=== PATIENT | female | born 1950 | race Caucasian/White ===

== ENCOUNTER 2024-03-02 10:35 | Inpatient (IN) ==
--- NOTE | 2024-01-19 16:08 | PAT Medication Instructions ---
Medication Instructions Date of Service January 19, 2024 Home Medications acetaminophen 650 mg tablet,extended release 650 mg PO Q12H PRN albuterol sulfate 90 mcg/actuation aerosol inhaler 1 inh inhalation QID PRN carboxymethylcellulose sodium 1 % eye liquid gel drops 1 drp ophthalmic (eye) TID cholecalciferol (vitamin D3) 50 mcg (2,000 unit) capsule (Vitamin D3) 50 mcg PO QAM hydrochlorothiazide 12.5 mg capsule 12.5 mg PO QAM losartan 25 mg tablet 25 mg PO BID montelukast 10 mg tablet (Singulair) 10 mg PO HS scopolamine base 1 mg over 3 days transdermal patch 1 patch transdermal Q3D PRN sumatriptan succinate 100 mg tablet (Imitrex) 100 mg PO UD PRN triamcinolone acetonide 55 mcg nasal spray aerosol (Nasacort Allergy) 2 spray intranasal QPM verapamil 120 mg tablet 120 mg PO QAM potassium 99 mg tablet 297 mg PO QPM sumatriptan succinate 6 mg/0.5 mL subcutaneous pen injector 6 mg subcut UD PRN biotin 2,500 mcg capsule 2,500 mcg PO QAM duloxetine 60 mg capsule,delayed release (Cymbalta) 60 mg PO QPM aluminum hydrox-magnesium carb 95 mg-358 mg/15 mL oral suspension (Gaviscon) 15 ml PO HS fluticasone 250 mcg-salmeterol 50 mcg/dose blistr powdr for inhalation (Advair Diskus) 1 inh inhalation BID warfarin 2 mg tablet 2 mg PO UD Continue as directed scopolamine base 1 mg over 3 days transdermal patch 1 patch transdermal Q3D PRN (if needed) sumatriptan succinate 100 mg tablet (Imitrex) 100 mg PO UD PRN(if needed) sumatriptan succinate 6 mg/0.5 mL subcutaneous pen injector 6 mg subcut UD PRN (if needed) ASK your prescriber and surgeon warfarin 2 mg tablet 2 mg PO UD STOP taking 2 weeks before surgery (or as soon as possible if surgery is within 2 weeks) biotin 2,500 mcg capsule 2,500 mcg PO QAM DO NOT take the morning of surgery cholecalciferol (vitamin D3) 50 mcg (2,000 unit) capsule (Vitamin D3) 50 mcg PO QAM hydrochlorothiazide 12.5 mg capsule 12.5 mg PO QAM losartan 25 mg tablet 25 mg PO BID Take morning of surgery With a small sip of water, OTHERWISE NOTHING TO EAT OR DRINK AFTER MIDNIGHT: acetaminophen 650 mg tablet,extended release 650 mg PO Q12H PRN(if needed) albuterol sulfate 90 mcg/actuation aerosol inhaler 1 inh inhalation QID PRN(use if needed; please bring with you to hospital day of surgery if possible) carboxymethylcellulose sodium 1 % eye liquid gel drops 1 drp ophthalmic (eye) TID verapamil 120 mg tablet 120 mg PO QAM fluticasone 250 mcg-salmeterol 50 mcg/dose blistr powdr for inhalation (Advair Diskus) 1 inh inhalation BID Take evening before surgery acetaminophen 650 mg tablet,extended release 650 mg PO Q12H PRN(if needed) albuterol sulfate 90 mcg/actuation aerosol inhaler 1 inh inhalation QID PRN(if needed) carboxymethylcellulose sodium 1 % eye liquid gel drops 1 drp ophthalmic (eye) TID losartan 25 mg tablet 25 mg PO BID montelukast 10 mg tablet (Singulair) 10 mg PO HS triamcinolone acetonide 55 mcg nasal spray aerosol (Nasacort Allergy) 2 spray intranasal QPM potassium 99 mg tablet 297 mg PO QPM duloxetine 60 mg capsule,delayed release (Cymbalta) 60 mg PO QPM aluminum hydrox-magnesium carb 95 mg-358 mg/15 mL oral suspension (Gaviscon) 15 ml PO HS fluticasone 250 mcg-salmeterol 50 mcg/dose blistr powdr for inhalation (Advair Diskus) 1 inh inhalation BID Other Notes If you have any questions please call us at [phone] or [phone] or [phone] or [phone]
--- NOTE | 2024-01-22 10:54 | Anesthesiology Consultation ---
Date of Service January 22, 2024 Assessment & Plan (1) Encounter for pre-operative examination: Plan - awaiting PCP (Betsy [facility]) and cardiology pre-op appointments (Dr. Mirza [place]) 01/29/24. - fax PT/INR to Dr. Martin. - check coags STAT am DOS. - PONV: she states with previous surgery had combination IV pre-dosing and scopolamine patch which she brought to the hospital and plans to do the same approach for this procedure. - chlorhexidine allergy: chlorhexidine wipes not provided at PAT visit. Chart Review Chart Review: Pending: Refer to Additional Notes / Consult section and Patient seen in Pre Admission Testing Teaching & Discussion Pre-Anesthesia Teaching/Discussion Notes: Instructed NPO after midnight before surgery, except medications with 15 cc of water. Medication instructions provided according to the [facility] guidelines. History Surgery Operation Date: 02/18/24 07:45 Proposed Procedures p L2-L4 Decompression and Fusion - Madhu King, Height/Weight Height: 5 ft 4 in Weight: 129 kg Allergies Allergy/AdvReac Type Severity Reaction Status Date / Time chlorhexidine Allergy Severe Hives Verified 01/19/24 13:41 celecoxib [From Celebrex] Allergy Intermediate Blister Verified 01/19/24 13:39 shellfish derived Allergy Intermediate crabs- Verified 01/19/24 13:39 diffuse welts (rhett mouth), swelling ciprofloxacin [From Cipro] Allergy Unknown rash, Verified 01/19/24 13:39 blisters Sulfa (Sulfonamide Allergy Unknown rash, Verified 01/19/24 13:39 Antibiotics) blisters isopropyl alcohol Allergy welted Verified 01/19/24 13:40 [From ChloraPrep Clear] solid bright red rash amoxicillin [From Augmentin] AdvReac Intermediate Vomiting Verified 01/19/24 13:39 clavulanic acid AdvReac Intermediate Vomiting Verified 01/19/24 13:39 [From Augmentin] Medications Home Medications Medication Instructions Recorded Confirmed Last Taken acetaminophen 650 mg 650 mg PO Q12H PRN Pain 02/28/21 01/19/24 2 Days Ago tablet,extended release ~06/05/22 albuterol sulfate 90 mcg/actuation 1 inh inhalation QID PRN sob 02/28/21 01/19/24 06/07/22 05:00 aerosol inhaler carboxymethylcellulose sodium 1 % 1 drp ophthalmic (eye) TID 02/28/21 01/19/24 12/16/22 eye liquid gel drops cholecalciferol (vitamin D3) 50 50 mcg PO QAM 02/28/21 01/19/24 12/16/22 mcg (2,000 unit) capsule (Vitamin D3) hydrochlorothiazide 12.5 mg capsule 12.5 mg PO QAM 02/28/21 01/19/24 12/16/22 losartan 25 mg tablet 25 mg PO BID 02/28/21 01/19/24 12/16/22 montelukast 10 mg tablet 10 mg PO HS 02/28/21 01/19/24 12/16/22 (Singulair) scopolamine base 1 mg over 3 days 1 patch transdermal Q3D PRN Motion 02/28/21 01/19/24 Unknown transdermal patch Sickness sumatriptan succinate 100 mg 100 mg PO UD PRN Migraine Headache 02/28/21 01/19/24 04/23/22 06:00 tablet (Imitrex) triamcinolone acetonide 55 mcg 2 spray intranasal QPM 02/28/21 01/19/24 12/16/22 nasal spray aerosol (Nasacort Allergy) verapamil 120 mg tablet 120 mg PO QAM 02/28/21 01/19/24 12/16/22 potassium 99 mg tablet 297 mg PO QPM 09/28/21 01/19/24 12/16/22 sumatriptan succinate 6 mg/0.5 mL 6 mg subcut UD PRN Migraine 09/28/21 01/19/24 Unknown subcutaneous pen injector Headache biotin 2,500 mcg capsule 2,500 mcg PO QAM 06/05/22 01/19/24 12/16/22 duloxetine 60 mg capsule,delayed 60 mg PO QPM 06/05/22 01/19/24 12/16/22 release (Cymbalta) aluminum hydrox-magnesium carb 95 15 ml PO HS 12/10/22 01/19/24 12/16/22 mg-358 mg/15 mL oral suspension (Gaviscon) fluticasone 250 mcg-salmeterol 50 1 inh inhalation BID 01/19/24 01/19/24 Unknown mcg/dose blistr powdr for inhalation (Advair Diskus) warfarin 2 mg tablet 2 mg PO UD 01/19/24 01/19/24 Unknown Past Medical History Medical History Antiphospholipid syndrome Asthma controlled, stable per pt; last albuterol inhaler use approx several months ago Borderline high cholesterol DDD (degenerative disc disease) Cristine-Danlos syndrome Unremarkable echo 2018 GERD (gastroesophageal reflux disease) controlled, stable per pt HTN (hypertension) controlled, stable per pt Hx of colonic polyps Hx pulmonary embolism "1 huge one, in pulmonary artery 02/07/23"; last CT scan 11/2023-"clot is no longer present"; f/u dr. martin, [facility] pulm in [place] Migraine Ocular; has not had any in years Monoclonal gammopathy Morbid obesity with BMI of 45.0-49.9, adult Osteoarthritis Prothrombin gene mutation Factor II; f/u dr. barnhart, [facility] hematology [place], gets INR checked weekly Spinal stenosis Temporomandibular joint disorder Locking episode several years ago yawning, no issues since; but can happen if mouth is open too wide Thyroid nodule early 2023, bx>benign Patient denies h/o stroke, seizures, heart attack, heart failure, DM, or blood transfusions. Exercise / Class Metabolic Activity III < 4 Walking/Shop/Light housework (denies chest discomfort or shortness of breath with usual activities) Past Family History Family History Sister PONV (postoperative nausea and vomiting) Past Surgical History Surgical History History of Achilles tendon repair Rt History of cholecystectomy History of colonoscopy History of D&C 03/09/21: LMA#4. History of esophagogastroduodenoscopy (EGD) History of hysteroscopy 03/09/21: LMA#4. History of kyphoplasty 2016, L2 History of left knee replacement 2010 History of nasal septoplasty w/ partial turbinate removal History of open reduction and internal fixation (ORIF) procedure LLE History of repair of rotator cuff Rt, w/partial amputation of clavicle; 2021 History of right knee joint replacement 2010 History of skin graft Rt foot History of tubal ligation PONV (postoperative nausea and vomiting) uses scop patch S/P excision of lipoma right foot S/P RC (total abdominal hysterectomy) 2022 Past Anesthesia History No Hx of Anesthesia Complications and Other (several family members with post-op nausea and vomiting) History of PONV History of PONV and Hx of Motion Sickness Social History Smoking Status: Never smoker Do You Dip or Chew Tobacco: No Hx Alcohol Use: Yes Alcohol type: wine alcohol intake frequency: other Alcohol Intake Frequency Comment: rare use Hx Substance Use: No substance use type: does not use Review of Systems Snoring, denies witnessed apneas. Patient denies chest pain, shortness of breath, dyspnea on exertion, fever, ch ills, cough, wheezing, or palpitations. Physical Exam Vital Signs Vitals BP 132/81 P 85 TEMP 98.5 SP02 94% on RA RESP 18 Physical Patient resting comfortably in chair in no acute distress, alert and oriented, responding appropriately throughout visit Full cervical extension range of motion without pain TMD 3.5 finger breadths Mallampati Score 3 Dentition: retainer glued on lower jaw and several crowns, denies chipped or loose teeth, caps, implants or bridges Lungs: normal respiratory effort. Good air movement, clear throughout to auscultation, no adventitious breath sounds Cardiac: regular rate and rhythm, no murmurs noted Carotid arteries: negative bruit bilat Lab Results Anesthesia Preop Results Results Anesthesia Widget: WBC 7.46 K/ul (4.8-10.8) 01/22/24 Hgb 13.7 g/dl (12.0-16.0) 01/22/24 Hct 41.6 % (37.0-47.0) 01/22/24 Plt 368 K/uL (130-400) 01/22/24 Na 138 mmol/L (136-145) 01/22/24 K 3.6 mmol/L (3.5-5.1) 01/22/24 Cl 101 mmol/L (98-107) 01/22/24 CO2 26 mmol/L (21-32) 01/22/24 BUN 21 mg/dl (6-23) 01/22/24 Creat 0.89 mg/dl (0.6-1.2) 01/22/24 Glucose Level 132 mg/dl (70-99(Fasting)) H 01/22/24 PT 18.1 Seconds (9.0-12.0) H 01/22/24 PTT 33 Seconds (21-31) H 01/22/24 INR 1.8 (0.9-1.1) H 01/22/24 Urine Color Dark Yellow 01/22/24 Urine Appearance Clear (Clear) 01/22/24 Urine pH 5.5 (4.5-7.5) 01/22/24 Urine Specific [place] 1.022 (1.000-1.030) 01/22/24 Urine Protein Negative (Negative) 01/22/24 Urine Glucose (UA) Negative (Negative) 01/22/24 Urine Ketones Trace (Negative) H 01/22/24 Urine Blood Negative (Negative) 01/22/24 Urine Nitrite Negative (Negative) 01/22/24 Urine Bilirubin Negative (Negative) 01/22/24 Urine Urobilinogen Negative (Negative) 01/22/24 Urine Leukocyte Esterase Negative (Negative) 01/22/24 Blood Type O Positive 01/22/24 Antibody Screen NEGATIVE 01/22/24 Testing Electrocardiogram Date: 01/22/24 Sinus rhythm with 1st degree AV block with occasional PVCs, rate [address] abnormality Echocardiogram Date: 02/09/23 EF 50-55% Borderline LVH Mildly dilated RV Mildly enlarged RA Mild tricuspid regurgitation Mild mitral regurgitation Borderline pulmonary hypertension, PASP 43 mmHg Stress Test Date: 03/18/22 MPHR 123% No evidence of infarction or ischemia noted Negative findings EF 73% Cardiac Catheterization Date: 05/29/23 Left main: normal LAD: no significant disease Cx: no significant disease RCA: no significant disease Normal right and left heart cath Other Testing Chest CT 12/09/23 No pulmonary intraluminal filling defect is currently identified to suggest recurrent/residual pulmonary embolism
[~2024-03-02 10:35] MED LIST: ACETAMINOPHEN 500 MG TAB PO SCH; GABAPENTIN 300 MG CAP PO SCH; LR 15ML/HR IV SCH; LR 60ML/HR IV SCH; ceFAZolin 2000MG 2,000 MG/15 ML SYR IV SCH; ceFAZolin 3000MG 3,000 MG/72.5 ML BAG IV SCH
[2024-03-02] MEDS ORDERED: ePHEDrine sulfate 50 MG/ML AMP IV PRN (11:29)
[2024-03-02] MEDS ORDERED: ATROPINE SULFATE 0.1 MG/ML 10ML SYR IV PRN (11:29)
[2024-03-02] MEDS ORDERED: ONDANSETRON INJ 2 MG/ML 2 ML VIAL IV PRN ×2 (11:29→16:24)
[2024-03-02] MEDS: ACETAMINOPHEN 500 MG TAB PO SCH (11:31)
[2024-03-02] MEDS: GABAPENTIN 300 MG CAP PO SCH (11:32)
[2024-03-02] MEDS: LR 15ML/HR IV SCH (11:32)
[2024-03-02] MEDS: LR 60ML/HR IV SCH (11:33)
--- NOTE | 2024-03-02 11:49 | History & Physical Bridge Note ---
Date of Service March 02, 2024 History & Physical Bridge Note I have examined the patient, reviewed the History & Physical and in the interval since the performance of the History & Physical I have noted the following changes of clinical significance: no changes noted
--- NOTE | 2024-03-02 11:50 | History & Physical Report ---
Date of Service March 02, 2024 Assessment & Plan (1) Neurogenic claudication due to lumbar spinal stenosis: Plan: L2 L4 decompression and fusion History of Present Illness Chief Complaint: Back and bilateral leg pain Primary Care Provider: Ciera Evans This is a 73-year-old female who presents with chronic persistent back and leg pain after failing course of nonoperative care she is here for surgical intervention. Patient Allergies Allergy/AdvReac Type Severity Reaction Status Date / Time chlorhexidine Allergy Severe Hives Verified 03/02/24 11:04 celecoxib [From Celebrex] Allergy Intermediate Blister Verified 03/02/24 11:04 shellfish derived Allergy Intermediate crabs- Verified 03/02/24 11:04 diffuse welts (rhett mouth), swelling ciprofloxacin [From Cipro] Allergy Unknown rash, Verified 03/02/24 11:04 blisters Sulfa (Sulfonamide Allergy Unknown rash, Verified 03/02/24 11:04 Antibiotics) blisters isopropyl alcohol Allergy welted Verified 03/02/24 11:04 [From ChloraPrep Clear] solid bright red rash amoxicillin [From Augmentin] AdvReac Intermediate Vomiting Verified 03/02/24 11:04 clavulanic acid AdvReac Intermediate Vomiting Verified 03/02/24 11:04 [From Augmentin] Home Medications Medication Instructions Recorded Confirmed Type acetaminophen 650 mg 650 mg PO Q12H PRN Pain 02/28/21 03/02/24 History tablet,extended release albuterol sulfate 90 mcg/actuation 1 inh inhalation QID PRN sob 02/28/21 03/02/24 History aerosol inhaler carboxymethylcellulose sodium 1 % 1 drp ophthalmic (eye) TID 02/28/21 03/02/24 History eye liquid gel drops cholecalciferol (vitamin D3) 50 50 mcg PO QAM 02/28/21 03/02/24 History mcg (2,000 unit) capsule (Vitamin D3) hydrochlorothiazide 12.5 mg capsule 12.5 mg PO QAM 02/28/21 03/02/24 History losartan 25 mg tablet 25 mg PO BID 02/28/21 03/02/24 History montelukast 10 mg tablet 10 mg PO HS 02/28/21 03/02/24 History (Singulair) scopolamine base 1 mg over 3 days 1 patch transdermal Q3D PRN Motion 02/28/21 03/02/24 History transdermal patch Sickness sumatriptan succinate 100 mg 100 mg PO UD PRN Migraine Headache 02/28/21 03/02/24 History tablet (Imitrex) triamcinolone acetonide 55 mcg 2 spray intranasal QPM 02/28/21 03/02/24 History nasal spray aerosol (Nasacort Allergy) verapamil 120 mg tablet 120 mg PO QAM 02/28/21 03/02/24 History potassium 99 mg tablet 297 mg PO QPM 09/28/21 03/02/24 History sumatriptan succinate 6 mg/0.5 mL 6 mg subcut UD PRN Migraine 09/28/21 03/02/24 History subcutaneous pen injector Headache biotin 2,500 mcg capsule 2,500 mcg PO QAM 06/05/22 03/02/24 History duloxetine 60 mg capsule,delayed 60 mg PO QPM 06/05/22 03/02/24 History release (Cymbalta) aluminum hydrox-magnesium carb 95 15 ml PO HS 12/10/22 03/02/24 History mg-358 mg/15 mL oral suspension (Gaviscon) fluticasone 250 mcg-salmeterol 50 1 inh inhalation BID 01/19/24 03/02/24 History mcg/dose blistr powdr for inhalation (Advair Diskus) warfarin 2 mg tablet 4 mg PO DAILY 01/19/24 03/02/24 History enoxaparin 120 mg/0.8 mL 120 mg subcut Q12H 03/02/24 03/02/24 History subcutaneous syringe (Lovenox) Past Med/Surg History Problem List (Updated 03/02/24 @ 11:49 by Madhu King DO) Neurogenic claudication due to lumbar spinal stenosis History of colon polyps Encounter for pre-operative examination Medical History Antiphospholipid syndrome Asthma controlled, stable per pt; last albuterol inhaler use approx several months ago Borderline high cholesterol DDD (degenerative disc disease) Cristine-Danlos syndrome Unremarkable echo 2019 GERD (gastroesophageal reflux disease) controlled, stable per pt HTN (hypertension) controlled, stable per pt Hx of colonic polyps Hx pulmonary embolism "1 huge one, in pulmonary artery 02/07/23"; last CT scan 11/2023-"clot is no longer present"; f/u dr. martin, [facility] pulm in [place] Migraine Ocular; has not had any in years Monoclonal gammopathy Morbid obesity with BMI of 45.0-49.9, adult Osteoarthritis Prothrombin gene mutation Factor II; f/u dr. barnhart, [facility] hematology [place], gets INR checked weekly Spinal stenosis Temporomandibular joint disorder Locking episode several years ago yawning, no issues since; but can happen if mouth is open too wide Thyroid nodule early 2023, bx>benign Surgical History History of Achilles tendon repair Rt History of cholecystectomy History of colonoscopy History of D&C 03/09/21: LMA#4. History of esophagogastroduodenoscopy (EGD) History of hysteroscopy 03/09/21: LMA#4. History of kyphoplasty 2016, L2 History of left knee replacement 2010 History of nasal septoplasty w/ partial turbinate removal History of open reduction and internal fixation (ORIF) procedure LLE History of repair of rotator cuff Rt, w/partial amputation of clavicle; 2021 History of right knee joint replacement 2010 History of skin graft Rt foot History of tubal ligation PONV (postoperative nausea and vomiting) uses scop patch S/P excision of lipoma right foot S/P RC (total abdominal hysterectomy) 2022 Family History Sister PONV (postoperative nausea and vomiting) Social History Smoking Status: Never smoker Second Hand Exposure: Yes (hx as child); Do You Dip or Chew Tobacco: No; Tobacco Cessation Education Requested by Patient: No Hx Alcohol Use: Yes Alcohol type: wine Hx Substance Use: No Preferred Language: [place] Communication Ability: Effective 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
[2024-03-02 11:52] LABS: INR 1.4 (0.9-1.1); Partial Thromboplastin Ratio 1.2; Partial Thromboplastin Time 31 Seconds (21-31); Prothrombin Time 14.3 Seconds (9.0-12.0)
[2024-03-02] MEDS ORDERED: fentaNYL citrate PF 100 MCG/2 ML VIAL ONE ×2 (12:08→13:45)
[2024-03-02] MEDS ORDERED: LIDOCAINE 2% 2 ML VIAL/AMP(20MG/ML) INFIL ONE (12:09)
[2024-03-02] MEDS ORDERED: PROPOFOL IV EMULSION 10 MG/ML 20 ML VIAL IV ONE (12:09)
[2024-03-02] MEDS ORDERED: ROCURONIUM BROMIDE 10 MG/ML 5 ML VIAL IV ONE ×2 (12:09→12:50)
[2024-03-02] MEDS ORDERED: DEXAMETHASONE SOD INJ 4 MG/ML VIAL ONE ×2 (12:10)
[2024-03-02] MEDS ORDERED: ONDANSETRON INJ 2 MG/ML 2 ML VIAL ONE (12:10)
[2024-03-02] MEDS: ceFAZolin 3000MG 3,000 MG/72.5 ML BAG IV SCH (12:21)
[2024-03-02] MEDS ORDERED: ePHEDrine sulfate 50 MG/5 ML SYR ONE ×2 (12:45)
[2024-03-02] MEDS ORDERED: PHENYLEPHRINE 100MCG/ML 5ML SYR ONE (12:46)
[2024-03-02] MEDS: BUPIVACAINE/EPINEPHRINE 0.25% 1:200,000 30 ML VIAL ONE (13:10)
[2024-03-02] MEDS: ceFAZolin 330 MG/ML 1 GM VIAL ONE (13:11)
[2024-03-02] MEDS ORDERED: PHENYLEPHRINE HCL 10 MG/ML VIAL ONE (13:16)
[2024-03-02] MEDS ORDERED: SUGAMMADEX SODIUM 200 MG/2 ML VIAL IV ONE (13:56)
[2024-03-02] MEDS: FLOSEAL HEMOSTATIC MATRIX 10ML TOP ONE (14:19)
--- NOTE | 2024-03-02 14:33 | Operative Report ---
Post Operative Report Pre & Post Diagnosis Operation Date: 03/02/24 11:55 Pre-Op Diagnosis: Lumbar spinal stenosis with neurogenic claudication Morbid obesity Post-Op Diagnosis: Same I identified the patient and participated in the time-out.: Yes Procedure Operation Date: 03/02/24 11:55 Actual Procedures #1 lumbar decompression with bilateral medial facetectomies and foraminotomies L1-L2, L2-L3 and L3-L4. #2 posterior spinal fusion L2-L4. #3 placement of posterior instrumentation L2-L4. #4 interbody fusion L2-L3 L3-L4. #5 placement of Spira 13 x 26 mm at all to L3 and 13 x 26 mm at L3-L4. #6 placement of locally harvested morselized autograft posterior gutters. #7 placement infuse collagen sponge combined with Koros in the posterior lateral gutters and os design bone graft in the interbody space. #8 application of versa wrap over the exposed dura. Surgeon Madhu King, DO Operations Analyst Harper Spivey Estimated Blood Loss 400 Findings See Below The patient is 5 foot 4 weighing over 126 kg with a BMI in excess of 47. Patient's body habitus did contribute to significant technical difficulty with positioning exposure and the procedure itself adding at least 50% increased to the operative time. I am recommending a modifier 22. Specimens None Indications This is a 73-year-old female who presents publish diagnosis of failing course of nonoperative care is here for surgical invention. Description of Procedure Patient was met with identified informed consent obtained. Patient was then taken to the operative suite underwent intubation placed in a prone position on the Vin table on top of the Josh frame. All bony promises well-padded eyes inspected to ensure no external pressure placed upon them. This point the lumbar spine was prepped and draped in the normal sterile fashion. Sharp dissection with assistance with cartilage from down to and exposing the lamina transverse processes of L2-L3 and L4 bilaterally. From a caudal cephalad fashion complete laminectomy of L3 was performed including bilateral medial facetectomies and foraminotomies addressing severe spinal stenosis. I then performed a complete laminectomy of L2 with bilateral medial facetectomies and foraminotomies addressing severe spinal stenosis and lastly partial laminectomy L1 with bilateral medial facetectomies to address all subarticular disease. Pedicle screws were then placed in L2-L3-L4 bilaterally with assistance of fluoroscopy and the properly sized abel placed. By way of transforaminal approach on the right a complete discectomy of L3-L4 was performed endplates corrected to subcortical bleeding bone and the 13 x 26 mm Spira cage filled with os design bone graft tapped in position. Then proceeded to L2-L3 and again by way of a transforaminal approach on the right complete discectomy performed endplates guarded to subcortical mean bone and a 13 x 26 mm spiral cage filled with os designed tapped in position. Rods are then compressed locked in final position bilaterally. The transverse processes of L to L3-L4 burred to subcorti yanira bleeding bone. Infuse collagen sponge, with Koros and local autograft placed in the posterior lower gutters. 15 round TOMY drain inserted. Versa wrap placed over the exposed dura. The incision then closed with 1 Vicryl the fascia 2-0 Vicryl subcutaneously and 4 Monocryl for final skin closure. Steri-Strips sterile dressings placed. Patient waken taken PACU stable condition. Please note spinal cord monitoring was utilized at the procedure no changes noted. Lastly Harper Spivey was present out the entire procedure and brought the patient positioning complex portion of the surgery and final skin closure. Im ordering 20 grams of [employer] [place] Collagen Powder ([employer] [id number]) to treat an incision wound that was caused by a spine procedure. The incision is approximately 2 cm(W) x 4 cm(L) into the joint (D) in size and is a full thickness wound. [employer] [place] collagen comes in 1 gram packets so 20 packets were ordered. Given the size of the wound, with light to moderate exudate I chose to order a 20 day supply. The patient will be provided instructions for proper application of the collagen wound kit. The patient will be asked to apply the collagen powder daily and then cover it with sterile dressings dispensed. Collagen was selected as I expect the collagen to attract monocytes and fibroblasts, act as a sacrificial substrate for MMPs, and ultimately proved a matrix for tissue and vessel growth. The collagen will act as a primary dressing in this scenario. It is medically necessary for proper healing of these wounds to improve bioavailability and contact with each wound surface, this is also to help prevent infection of wounds and promote healing ultimately leading to a better healing outcome and limit the risk of infection. I attest to the content of the Intraoperative Record and any orders documented therein. Any exceptions are noted below.
--- NOTE | 2024-03-02 14:58 | Anesthesiology Progress Note ---
Date of Service March 02, 2024 Anesthesia Post Procedure Vital Signs Vital Signs: Temp Pulse Resp BP Pulse Ox O2 Del Method 03/02/24 11:13 Room Air 03/02/24 11:11 36.5 C 101 H 20 152/98 H 96 Room Air Pain Intensity Lower Back: Pain Intensity: 7 Transfer of Care Handoff Completed per policy Notes Mental Status: alert / awake / arousable Patient Amnestic to Procedure: Yes Nausea / Vomiting: adequately controlled Pain: adequately controlled Airway Patency, RR, SpO2: stable & adequate BP & HR: stable & adequate Hydration State: stable & adequate Anesthetic Complications: no major complications apparent and Pt Satisfied with anesthetic care Notes: Moves Bony LE, No pain, no issues
[2024-03-02] MEDS: fentaNYL citrate PF 100 MCG/2 ML VIAL IV PRN (15:10)
[2024-03-02] MEDS: HYDROmorphone INJ 1 MG/ML SYRINGE IV PRN (15:34)
[2024-03-02] MEDS ORDERED: traMADol HCL 50 MG TABLET PO PRN (16:24)
[2024-03-02] MEDS ORDERED: HYDROmorphone INJ 0.5 MG/0.5 ML SYR IV PRN (16:24)
[2024-03-02] MEDS ORDERED: PROMETHAZINE 12.5 MG/50.5 ML BAG IV PRN (16:24)
[2024-03-02] MEDS ORDERED: DO NOT ADMINISTER PNEUMOCOCCAL VACCINE PRN (16:24)
[2024-03-02] MEDS ORDERED: FAMOTIDINE 20 MG TAB PO PRN (16:24)
[2024-03-02] MEDS ORDERED: bisacodyL 10 MG SUPP PR PRN (16:24)
[2024-03-02] MEDS ORDERED: ALUMINUM/MAGNESIUM SUSP 30 ML UDC PO PRN (16:24)
[2024-03-02] MEDS ORDERED: MAGNESIUM HYDROXIDE SUSP 30 ML UDC PO PRN (16:24)
[2024-03-02] MEDS ORDERED: ACETAMINOPHEN 1,000 MG/100 ML VIAL IV PRN (16:24)
[2024-03-02] MEDS ORDERED: LORazepam 2 MG/1 ML VIAL IV PRN (16:24)
[2024-03-02] MEDS ORDERED: ACETAMINOPHEN 500 MG TAB PO PRN (16:24)
[2024-03-02] MEDS ORDERED: ALBUTEROL HFA 8 GM INHALER INH PRN (16:24)
[2024-03-02] MEDS ORDERED: ONDANSETRON 4 MG OD TAB PO PRN (16:24)
[2024-03-02] MEDS ORDERED: SUMAtriptan succinate 100 MG TAB PO PRN (16:24)
[2024-03-02] MEDS ORDERED: NALOXONE HCL 0.4 MG/1 ML VIAL/CARP IV PRN (16:24)
[2024-03-02] MEDS ORDERED: diphenhydrAMINE Capsule 25 MG CAP PO PRN (16:24)
[2024-03-02] MEDS ORDERED: LORazepam 0.5 MG TAB PO PRN (16:24)
[2024-03-02] MEDS ORDERED: METOCLOPRAMIDE HCL INJ 5 MG/ML 2 ML VIAL IV PRN (16:24)
[2024-03-02] MEDS ORDERED: DO NOT ADMINISTER FLU VACCINE PRN (16:24)
[2024-03-02] MEDS ORDERED: hydrOXYzine HCl 25 MG TAB PO PRN (16:24)
[2024-03-02] MEDS ORDERED: SCOPOLAMINE 1 MG/72 HR TDSY PATCH TD PRN (16:24)
[2024-03-02] MEDS ORDERED: SOD PHOSPHATE/SOD BIPHOSPHATE ENEMA 132 ML BTL PR PRN (16:24)
[2024-03-02] MEDS ORDERED: ARTIFICIAL TEARS OPB PRN (16:40)
[2024-03-02] MEDS ORDERED: SUMAtriptan succinate 6 MG/0.5 ML VIAL SQ PRN (16:44)
--- NOTE | 2024-03-02 17:46 | Consultation ---
Date of Consultation March 02, 2024 Assessment & Plan (1) Neurogenic claudication due to lumbar spinal stenosis: (2) Antiphospholipid syndrome: (3) Migraine: (4) Borderline high cholesterol: (5) HTN (hypertension): (6) Asthma: Plan Assessment and plan: Lumbar stenosis s/p lumbar decompression 03/02/2024: Pain control/DVT prophylaxis per primary team PT/OT Hx antiphospholipid syndrome: Will need Lovenox to Coumadin bridge postoperatively planned to start on 03/03 Hx asthma: Continue albuterol as needed/continue montelukast Hx vitamin D deficiency: Continue vitamin D Hx depression: Continue Cymbalta Hx HTN: hold HCTZ/losartan to prevent hypotension continue verapamil - monitor BP closely A total of 60 minutes was spent on chart review/reviewing diagnostic data/facilitation plan./Discussion with consultants Full code DVT prophylaxis: On Lovenox/Coumadin bridge,on hold per primary team Supervising Physician Co-Signing Physician Notes Attending Addendum: Case reviewed with the advanced practitioner. I have personally performed a history and physical examination on the patient. I have reviewed the advanced practitioner's documentation on the date of service referenced in note, and I agree with, and take responsibility for the plan of care. please refer to her notes for full details patient seen and examined, records reviewed by myself as well on exam, patient seen resting in bed, sleeping but easily awakened, on 2 L of O2 Awake and alert, not in distress, comfortable Has some back pain but overall feels fine Denies chest pain, shortness of breath, dizziness, headache, nausea No other new symptoms no other symptoms VS noted and reviewed oriented x3 , not in distress, speaks in sentences with no effort nor accessory muscle use normal rate, regular rhythm, no murmurs clear breath sounds bilaterally non distended, soft, nontender back: TOMY drain in place with sanguinous output no bipedal edema, erythema, warmth no neuro deficits all labs, imaging noted and reviewed ASSESSMENT AND PLAN> Status post L2-L4 decompression and fusion Stable overall Blood pressure on the lower side Hold off on losartan and HCTZ to prevent hypotension Continue usual verapamil Labs tomorrow Antiphospholipid antibody syndrome History of acute PE, on Coumadin coumadin held for surgery When hemostasis stable per Dr. King, proceed with resuming Coumadin plus Lovenox bridge as directed by patient's PCP: March 03 Coumadin 4 mg Lovenox 120 mg at HS March 04- Coumadin 4 mg Lovenox 120 mg twice daily March 08 INR check other diagnoses and plan of care as per advanced practitioner's notes Jose Alejandro Reyes MD History of Present Illness Requesting Physician: Madhu King Reason for Consultation: Postop medical management Attending Physician: Madhu King DO History of Present Illness The patient is a 73-year-old female with past medical history of lumbar spinal stenosis, asthma, vitamin D deficiency, depression, HTN, migraine, antiphospholipid syndrome who presents to the hospital on 03/02/2024 for a planned operation. She is s/p #1 lumbar decompression with bilateral medial facetectomies and foraminotomies L1-L2, L2-L3 and L3-L4. #2 posterior spinal fusion L2-L4. #3 placement of posterior instrumentation L2-L4. #4 interbody fusion L2-L3 L3-L4. #5 placement of Spira 13 x 26 mm at all to L3 and 13 x 26 mm at L3-L4. #6 placement of locally harvested morselized autograft posterior gutters. #7 placement infuse collagen sponge combined with Koros in the posterior lateral gutters and os design bone graft in the interbody space. #8 application of versa wrap over the exposed dura. On exam, the patient is resting comfortably. Reports some lower back tenderness but otherwise denies any chest pain/shortness of breath/fever/chills/abdominal pain. Allergies Allergy/AdvReac Type Severity Reaction Status Date / Time chlorhexidine Allergy Severe Hives Verified 03/02/24 11:04 celecoxib [From Celebrex] Allergy Intermediate Blister Verified 03/02/24 11:04 shellfish derived Allergy Intermediate crabs- Verified 03/02/24 11:04 diffuse welts (rhett mouth), swelling ciprofloxacin [From Cipro] Allergy Unknown rash, Verified 03/02/24 11:04 blisters Sulfa (Sulfonamide Allergy Unknown rash, Verified 03/02/24 11:04 Antibiotics) blisters isopropyl alcohol Allergy welted Verified 03/02/24 11:04 [From ChloraPrep Clear] solid bright red rash amoxicillin [From Augmentin] AdvReac Intermediate Vomiting Verified 03/02/24 11:04 clavulanic acid AdvReac Intermediate Vomiting Verified 03/02/24 11:04 [From Augmentin] Home Medications Medication Instructions Recorded Confirmed Type acetaminophen 650 mg 650 mg PO Q12H PRN Pain 02/28/21 03/02/24 History tablet,extended release albuterol sulfate 90 mcg/actuation 1 inh inhalation QID PRN sob 02/28/21 03/02/24 History aerosol inhaler carboxymethylcellulose sodium 1 % 1 drp ophthalmic (eye) TID 02/28/21 03/02/24 History eye liquid gel drops cholecalciferol (vitamin D3) 50 50 mcg PO QAM 02/28/21 03/02/24 History mcg (2,000 unit) capsule (Vitamin D3) hydrochlorothiazide 12.5 mg capsule 12.5 mg PO QAM 02/28/21 03/02/24 History losartan 25 mg tablet 25 mg PO BID 02/28/21 03/02/24 History montelukast 10 mg tablet 10 mg PO HS 02/28/21 03/02/24 History (Singulair) scopolamine base 1 mg over 3 days 1 patch transdermal Q3D PRN Motion 02/28/21 03/02/24 History transdermal patch Sickness sumatriptan succinate 100 mg 100 mg PO UD PRN Migraine Headache 02/28/21 03/02/24 History tablet (Imitrex) triamcinolone acetonide 55 mcg 2 spray intranasal QPM 02/28/21 03/02/24 History nasal spray aerosol (Nasacort Allergy) verapamil 120 mg tablet 120 mg PO QAM 02/28/21 03/02/24 History potassium 99 mg tablet 297 mg PO QPM 09/28/21 03/02/24 History sumatriptan succinate 6 mg/0.5 mL 6 mg subcut UD PRN Migraine 09/28/21 03/02/24 History subcutaneous pen injector Headache biotin 2,500 mcg capsule 2,500 mcg PO QAM 06/05/22 03/02/24 History duloxetine 60 mg capsule,delayed 60 mg PO QPM 06/05/22 03/02/24 History release (Cymbalta) aluminum hydrox-magnesium carb 95 15 ml PO HS 12/10/22 03/02/24 History mg-358 mg/15 mL oral suspension (Gaviscon) fluticasone 250 mcg-salmeterol 50 1 inh inhalation BID 01/19/24 03/02/24 History mcg/dose blistr powdr for inhalation (Advair Diskus) warfarin 2 mg tablet 4 mg PO DAILY 01/19/24 03/02/24 History enoxaparin 120 mg/0.8 mL 120 mg subcut Q12H 03/02/24 03/02/24 History subcutaneous syringe (Lovenox) Patient History Medical History Antiphospholipid syndrome Asthma controlled, stable per pt; last albuterol inhaler use approx several months ago Borderline high cholesterol DDD (degenerative disc disease) Cristine-Danlos syndrome Unremarkable echo 2019 GERD (gastroesophageal reflux disease) controlled, stable per pt HTN (hypertension) controlled, stable per pt Hx of colonic polyps Hx pulmonary embolism "1 huge one, in pulmonary artery 02/07/23"; last CT scan 11/2023-"clot is no longer present"; f/u dr. martin, [facility] pulm in [place] Migraine Ocular; has not had any in years Monoclonal gammopathy Morbid obesity with BMI of 45.0-49.9, adult Osteoarthritis Prothrombin gene mutation Factor II; f/u dr. barnhart, [facility] hematology [place], gets INR checked weekly Spinal stenosis Temporomandibular joint disorder Locking episode several years ago yawning, no issues since; but can happen if mouth is open too wide Thyroid nodule early 2023, bx>benign Surgical History History of Achilles tendon repair Rt History of cholecystectomy History of colonoscopy History of D&C 03/09/21: LMA#4. History of esophagogastroduodenoscopy (EGD) History of hysteroscopy 03/09/21: LMA#4. History of kyphoplasty 2016, L2 History of left knee replacement 2010 History of nasal septoplasty w/ partial turbinate removal History of open reduction and internal fixation (ORIF) procedure LLE History of repair of rotator cuff Rt, w/partial amputation of clavicle; 2021 History of right knee joint replacement 2010 History of skin graft Rt foot History of tubal ligation PONV (postoperative nausea and vomiting) uses scop patch S/P excision of lipoma right foot S/P RC (total abdominal hysterectomy) 2022 Family History Sister PONV (postoperative nausea and vomiting) Social History Smoking Status: Never smoker Second Hand Exposure: Yes (hx as child); Do You Dip or Chew Tobacco: No; Tobacco Cessation Education Requested by Patient: No Hx Alcohol Use: Yes Alcohol type: wine Hx Substance Use: No Preferred Language: [place] Communication Ability: Effective [employer] Required: No Beliefs That Will Affect Care: None Current Living Situation: Spouse current occupational status: retired Other Information That Helps Us Care for You: No Feels Safe at Home: Yes Safety Concerns: Feels Safe At This Time Assistive Devices: Glasses, Stair Lift and Walker Review of Systems Review of Systems: All systems reviewed & are unremarkable except as noted in HPI & below Physical Exam Constitutional: WD/WN, vitals as above Eyes: PERRL, conjunctivae normal, anicteric sclerae ENMT: external ear and nose normal, oropharynx normal Neck: trachea midline, no thyromegaly Respiratory: normal respiratory effort, lungs clear to auscultation Cardiovascular: RRR, no murmur, no edema Gastrointestinal (Abdomen): normal bowel sounds, soft, nontender, no hepatosplenomegaly Musculoskeletal: no cyanosis or clubbing, extremities motor strength 5/5 Neurologic: PERRL, EOMI, accommodation nl, no face palsy, no dysarthria Lymphatic: no cervical or axillary lymphadenopathy Results & Data Vital Signs (Past 12 Hours) Vital Signs Temp Pulse Pulse Resp BP Pulse Ox O2 Del Method 03/02/24 17:15 84 16 134/78 92 Nasal Cannula 03/02/24 16:50 87 16 107/73 94 Nasal Cannula 03/02/24 16:25 36.6 C 78 16 115/77 94 Nasal Cannula 03/02/24 16:20 Nasal Cannula 03/02/24 16:10 81 13 103/73 94 Nasal Cannula 03/02/24 15:55 36.6 C 78 12 104/73 94 Nasal Cannula 03/02/24 15:45 79 13 108/81 93 Nasal Cannula 03/02/24 15:35 82 14 110/72 93 Nasal Cannula 03/02/24 15:25 84 12 105/75 93 Nasal Cannula 03/02/24 15:15 81 16 123/79 93 Nasal Cannula 03/02/24 15:05 84 16 119/91 96 Nasal Cannula 03/02/24 14:55 84 16 123/82 96 Nasal Cannula 03/02/24 14:45 86 17 116/86 97 Nasal Cannula 03/02/24 14:38 36.7 C 88 16 142/104 H 98 Nasal Cannula 03/02/24 11:13 Room Air 03/02/24 11:11 36.5 C 101 H 20 152/98 H 96 Room Air O2 Flow Rate 03/02/24 17:15 3 03/02/24 16:50 2 03/02/24 16:25 3 03/02/24 16:20 3 03/02/24 16:10 3 03/02/24 15:55 3 03/02/24 15:45 3 03/02/24 15:35 3 03/02/24 15:25 4 03/02/24 15:15 4 03/02/24 15:05 4 03/02/24 14:55 6 03/02/24 14:45 6 03/02/24 14:38 6 03/02/24 11:13 03/02/24 11:11
[2024-03-02] MEDS: oxyCODONE HCL IR 5 MG TAB (IMMEDIATE RELEASE) PO PRN (19:57)
[2024-03-02] MEDS: DOCUSATE SODIUM/SENNA 50/8.6MG TAB PO SCH (20:52)
[2024-03-02] MEDS: FLUTICASONE/SALMETEROL 250/50 (ADVAIR) 14 PUFF/1 INHALER INH SCH (20:52)
[2024-03-02] MEDS: MONTELUKAST SODIUM 10 MG TABLET PO SCH (20:52)
[2024-03-02] MEDS: ADVANCED PROBIOTIC 625 MG CAPSULE PO SCH (20:52)
[2024-03-02] MEDS: FLUTICASONE PROPIONATE NA SPR 16 GM BTL SCH (20:52)
[2024-03-02] MEDS: DULoxetine HCL 60 MG CAP PO SCH (20:52)
[2024-03-02] MEDS ORDERED: LOSARTAN POTASSIUM 25 MG TAB PO SCH (21:00)
[2024-03-02] MEDS ORDERED: NON-FORMULARY MEDICATION (Potassium 99 mg Tablet) PO SCH (21:00)
[2024-03-02] MEDS ORDERED: [UNRECOGNIZED DRUG - OTHER] PO SCH (21:00)
[2024-03-02] MEDS: CLINDAMYCIN/D5W 600 MG/50 ML BAG IV SCH (21:01)
--- OUTSIDE RECORDS SUMMARY | 2024-03-02 21:07 | External Medical Summary | Summary of Care ---
Author Name Unknown Organization [facility] Address [address] [facility] [place] [address] Phone [phone] Care Team Providers Care Supervisor Computer Operations Name Role Phone NathanCiera Marshall BURNETT Primary Care Provider [phone] Reason for Visit * Reason Onset Date Comments Follow Up 02/05/2024 Encounter Details Date Type Department Care Team (Late st Contact Info) Description 02/05/2024 11:00 AM EDT Scheduled Telephone Interventional Pain Center, [facility] [address] [place] [address] [facility], Nurse Phone Call Interventional Pain [facility] [address] [place] [phone] Pain of left sacroiliac joint*; Osteoarthritis of left sacroiliac joint (HCC) Allergies Active Allergy Reactions Criticality Noted Date Comments Celecoxib Other (Please comment) 02/21/2010 Fixed drug eruption Chlorhexidine Bleeding,Hives,Itch ing High 10/15/2021 Ciprofloxacin Hcl Hives,Itching 10/07/2012 Pollen 10/07/2012 Food (See Comments) 10/07/2012 crab Chlorhexidine Gluconate Rash 04/09/2016 Bszkmjtw-Rufgmdyat-Zqtmkkc h Rash 03/11/2017 Other Allergy (See Comments) Other (Please comment),Rash 10/07/2012 Chloroprep Shellfish-Derived Products Hives Sulfa Antibiotics Other (Please comment) 10/07/2012 Fixed drug eruption Sulfamethoxazole 11/20/2009 Trimethoprim 11/20/2009 documented as of this encounter (statuses as of 02/12/2024) Medications Medication Sig Dispensed Refills Start Date End Date Status IMITREX 100 MG PO TABS Take 1 Tablet by mouth every 2 hours as needed. Active PROAIR HFA 108 (90 BASE) MCG/ACT inhaler As needed 06/12/2015 Act lucrecia losartan (COZAAR) 25 MG Tablet Take 1 Tablet by mouth in the morning and 1 Tablet in the evening. Active Cholecalciferol (VITAMIN D) 2000 units Tablet Take 2,000 Units by mouth daily. Active montelukast (SINGULAIR) 10 MG Tablet Take 1 Tablet by mouth. 06/02/2019 Active fluticasone furoate-vilanterol (BREO ELLIPTA) 100-25 MCG/INH AEPB Inhale 1 Puff by mouth. 07/28/2019 Active scopolamine (TRANSDERM SCOP) 1.[address] 1 Patch topically on the skin. 06/23/2017 Active hydroCHLOROthiazide (HYDRODIURIL) 12.5 MG Tablet Take 1 Tablet by mouth. 08/26/2018 Active SUMAtriptan Succinate (IMITREX) 6 MG/0.5ML SOAJ Inject 6 mg under the skin. 02/22/2019 Active Triamcinolone Acetonide 55 MCG/ACT Nasal Aerosol Administer 2 Sprays into nostril once. 2 sprays in each nostril Active Biotin 1 MG Oral Capsule Take 1 Capsule by mouth in the morning and 1 Capsule at noon and 1 Capsule before bedtime. Active Potassium 95 MG Oral Tablet Take 75 mg by mouth in the morning. Active Carboxymethylcellulos e Sodium 0.5 % Ophthalmic Solution 1 gtt each eye BID Active Gaviscon 95-358 MG/15ML Oral Suspension (Alum Hydroxide-Mag Carbonate) Take by mouth. Take 4tsp at bedtime. Active Carboxymethylcellulos e Sod PF 0.5 % Ophthalmic Solution Instill 2 Drops into eye in the morning and 2 Drops at noon and 2 Drops before bedtime. Active Verapamil HCl 120 MG Oral Tablet (Isoptin) Take 1 Tablet by mouth in the morning. Active DULoxetine HCl 60 MG Oral Capsule Delayed Release Particles (Cymbalta) Take 5 Capsules by mouth in the morning. Active Apixaban 5 MG Oral Tablet (Eliquis) Take 1 Tablet by mouth in the morning and 1 Tablet before bedtime. Active Warfarin Sodium 2 MG Oral Tablet (Coumadin) Take 1 Tablet by mouth every evening. Adjusting dose Active Doxycycline Monohydrate 100 MG Oral Tablet 10/28/2023 Active Fluticasone-Salmetero l 250-50 MCG/ACT Inhalation Aerosol Powder Breath Activated (Advair Diskus) Inhale 1 Puff by mouth in the morning and 1 Puff before bedtime. 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 Hypertrophy, nasal, turbinate 02/10/2015 Achilles tendinitis 11/15/2013 Hypermobility syndrome 10/15/2013 Obesity, Class II, BMI 35-39.9, isolated (see ac tual BMI) 10/15/2013 Osteoarthritis DISH (diffuse idiopathic skeletal hyperostosis) documented as of this encounter (statuses as of 02/12/2024) Immunizations Name Administration Dates Next Due COVID-19 mRNA, LNP-s, No Pre serve, 2-Dose Series (Moderna) 06/23/2020,05/26/2020 COVID-19, MRNA-LNP, 23-24, P F, 25 MCG/0.25 mL, 6MO-11YRS, IM (MODERNA) 02/01/2023 Covid-19, Mrna, Lnp-s, Pf, B ivalent, 50 Mcg, IM, 12 yrs and above (Moderna) 02/01/2022,07/27/2021,02/21/2021 Pneumococcal Conjugate Vacc, 13 Valent (Prevnar) 02/02/2016 Pneumococcal Polysaccharide PPV23 (Pneumovax) 02/22/2019 Seasonal Influenza Vac., MDV , IM, 0.5 mL (Fluzone) 02/15/2020,02/15/2014,02/25/2013,03/09 Seasonal Influenza, High Dos e, Trivalent, PF, IM (Fluzone HD) 03/31/2017,02/02/2016 TDAP, Age 7 and older, IM (Adacel) 08/06/2007 Varicella Zoster Vaccine (Adult) 03/27/2012 Zoster Vaccine Recombinant (Shingrix) 04/26/2018 ,02/03/2018 documented as of this encounter Social History Tobacco Use Types Packs/Day Years Used Date Smoking Tobacco: Never Smokeless Tobacco: Never Alcohol Use Standard Drinks/Week Comments Yes 0 (1 standard drink = 0.6 oz pur e alcohol) one per month Hunger Vital Sign Answer Date Recorded Within the past 12 months, y ou worried that your food would run out before you got the money to buy more. Never true 07/18/19 24 Within the past 12 months, t he food you bought just didn't last and you didn't have money to get more. Never true 07/18/2023 Childcare Answer Date Recorded Do you feel overwhelmed with taking care of a child, family member or friend? No 07/18/2023 Does your family need help f inding childcare? (Household - for ages 0-17 years) Not on file 07/18/2023 Clothing Answer Date Recorded Have you been unable to get clothing when it was really needed? No 07/18/2023 Is your family able to get c lothes or diapers when needed? (Household - for ages 0-17 years) Not on file 07/18/2023 Personal Safety Answer Date Recorded Do you feel unsafe or have concerns for your saf ety? No 07/18/2023 Do you have concerns for you r family's safety? (Household - for ages 0-17 years) Not on file 07/18/2023 Utilities Answer Date Recorded Do you have trouble paying y our heating, water, or electric bill? No 07/18/2023 Is your family able to pay t he heat, water, or electric bill? (Household - for ages 0-17 years) Not on file 07/18/2023 Does your family have access to good internet? (Household - for ages 0-17 years) Not on file 07/18/2023 Employment Status Answer Date Recorded Are you unemployed or without regular income? No 07/18/2023 Does the household have a re gular source of income? (Household - for ages 0-17 years) Not on file 07/18/2023 Social Connections Answer Date Recorded How often do you feel lonely or isolated from th ose around you? Never 07/18/2023 Financial Resource Strain Answer Date R ecorded Do you have any trouble payi ng for your medications, or do you think you might in the future? No 07/18/2023 Does your family have troubl e paying for medicine? (Household - for ages 0-17 years) Not on file 07/18/2023 Transportation Needs Answer Date Record ed READ ONLY Do you have troubl e getting a ride to medical visits or work? Never True 07/18/2023 Does your family have a hard time getting a ride to doctors visits? (Household - for ages 0-17 years) Not on file 07/18/2023 Has lack of transportation k ept you from medical appointments, meetings, work, or from getting things needed for daily living? Check all that apply. (Adult - for ages 18 years and over) Not on file 07/18/2023 Do you (or your family) have trouble finding or paying for a ride (transportation)? (Household - for ages 0-17 years) Not on file 07/18/2023 Housing Stability Answer Date Recorded Do you currently live in a s helter or have no steady place to sleep at night? Yes 07/18/2023 READ ONLY Do you think you a re at risk of becoming homeless? No 07/18/2023 Does your family worry about paying for your home or becoming homeless? (Household - for ages 0-17 years) Not on file 0 07/18/2023 Are you homeless or worried that you might be in the future? (Adult - for ages 18 years and over) Not on file Are you (or your family) ronnie eless or worried that you might be in the future? (Household - for ages 0-17 years) Not on file Food Insecurity Answer Date Recorded Do you need food for this week? Yes 07/18/2023 Are you able to get enough f ood for your family? (Household - for ages 0-17 years) Not on file 07/18/2023 Does your family need food t his week? (Household - for ages 0-17 years) Not on file 07/18/2023 Do you always have enough fo od for your family? (Household - for ages 0-17 years) Not on file 07/18/2023 Sex and Gender Information Value Date Recorded Sex Assigned at Not on file Gender Identity Female 09/19/2021 12:09 AM EDT Sexual Orientation Not on file Job Start Date Occupation Industry Not on file Not on file Not on file documented as of this encounter Functional Status Functional Status Response Date of Assess ment Are you deaf or do you have serious difficulty h earing? No 04/10/2016 Are you blind or do you have serious difficulty seeing, even when wearing glasses? No 04/10/2016 Do you have serious difficul ty walking or climbing stairs? (5 years old or older) No 04/10/2016 Do you have difficulty dress ing or bathing? (5 years old or older) No 04/10/2016 Because of a physical, menta l, or emotional condition, do you have difficulty doing errands alone such as visiting a doctor s office or shopping? (15 years old or older) No 04/10/20 16 Cognitive Status Response Date of Assessm ent Because of a physical, menta l, or emotional condition, do you have serious difficulty concentrating, remembering, or making decisions? (5 years old or older) No 04/10/2016 documented as of this encounter Miscellaneous Notes * Telephone Encounter - Monserrat Rodriguez LPN - 02/12/2024 3:57 PM EDT Voicemail left for patient. * Addendum Note - Fabian Chavira DO - 02/05/2024 4:47 PM EDTAddended by: FABIAN CHAVIRA on: 02/05/2024 04:47 PM Modules accepted: Orders * Telephone Encounter - Monserrat Rodriguez LPN - 02/05/2024 10:18 AM EDT Patient reports 0 pain all day yesterday and only a 1/10 24hrs later. 100% improvement. * Telephone Encounter - Monserrat Rodriguez LPN - 02/05/2024 9:55 AM EDT Diagnostic block of the left L5 dorsal ramus. Diagnostic block of the left S1, S2, S3 lateral branches. Left message for patient to return call. documented in this encounter Plan of Treatment Upcoming Encounters Date Type Department Care Team (Latest Contact Info) Description 03/08/2024 2:45 PM EST Imaging Radiology [facility] [address] [place] [id number] 04/02/2024 4:30 PM EST Imaging Radiology [facility] [facility] [address] [place] [address] 05/12/2024 12:00 PM EST Hospital Encounter OR [facility], Operating Room [facility] [address] [place] [address] Fabian Chavira, [address] [place] [address] 05/12/2024 12:00 PM EST - 05/12/2024 1:00 PM EST Surgery OR [facility], Operating Room [facility] [address] [place] [phone] Fabian Chavira, DO [address] [place] [address] ABLATION RADIOFREQUENCY SACROILIAC 07/06/2024 12:00 PM EDT Hospital Encounter OR [facility], Operating Room, [facility] - 4th Floor [address] [place] [address] [place] [address] Annabella Fulton MD [address] [place] [address] 07/06/2024 12:00 PM EDT - 07/06/2024 1:00 PM EDT Surgery OR [facility], Operating Room, [facility] - 4th Floor [address] [place] [address] Annabella Fulton MD [address] [place] [address] COLONOSCOPY FLEXIBLE PROXIMAL DIAGNOSTIC 12/01/2024 5:15 PM EDT Office Visit Gynecology/Obstetr [facility] [address] [place] [address] Aurora Baldwin PA-C [address] [place] [address] Scheduled Orders Name Type Priority Associated Diagnoses Orde r Schedule RADIOFREQUENCY ABLATION, NERVES INNERVATING SACROILIAC JOINT W/ IMAGE GUIDANCE Procedures Routine Pain of left sacroiliac joint Osteoarthritis of left sacroiliac joint (HCC) Expected: 02/06/2024, Expires: 06/07/2024 Scheduled Procedures Name Priority Associated Diagnoses Date/Ti me ABLATION RADIOFREQUENCY SACROILIAC Chronic left sacroiliac joint pain 05/12/2024 12:00 PM EST COLONOSCOPY FLEXIBLE PROXIMA L DIAGNOSTIC History of colon polyps 07/06/2024 12:00 PM EDT Health Maintenance Due Date Last Done Comments Hepatitis C Screening 1968 Cologuard 12/03/1995 Sigmoidoscopy 12/03/1995 DTap/Tdap Vaccines (2 - Td or Tdap) 08/05/2017 08/06/2007 Depression Screening 02/25/2018 02/25/2017 Fecal Occult Blood Test 01/06/2021 01/07/2020 COVID-19 Vaccine ( season) 2024 01/15/2024, 02/01/2023, 02/01/2023, Additional history exists Mammogram 04/01/2024 04/01/2023, 08/2022, 03/27/2022, Additional history exists Lipid Panel 05/30/2027 05/30/2022, 05/29, 10/13/2020 DXA Scan 08/21/2029 08/21/2022, 07/28, 02/01/2016, Additional history exists Colonoscopy 12/18/2032 12/18/2022, 11/27, 04/23/2022, Additional history exists Colorectal Cancer Screening 12/18/2032 Zoster Vaccines Completed 04/26/2018, 12/2017, 03/27/2012 Pneumococcal Vaccine: 65+ Years Completed 02/22/2019, 02/02/2016 Influenza Vaccine (FLU shot) Completed , 01/28/2023, 01/28/2023, Additional history exists HPV (Gardasil) Vaccine Aged Out No lo nger eligible based on patient's age to complete this topic Hepatitis B Vaccine Aged Out No longe r eligible based on patient's age to complete this topic MENINGOCOCCAL (MENACTRA/MENVEO) Aged Out No longer eligible based on patient's age to complete this topic documented as of this encounter Medical Devices Not on filedocumented as of this encounter Visit Diagnoses Diagnosis Pain of left sacroiliac joint- Primary Disorders of sacrum Osteoarthritis of left sacroiliac joint (HCC) Screening mammogram for breast cancer Chronic left sacroiliac joint pain Disorders of sacrum History of colon polyps Personal history of colonic polyps documented in this encounter Advance Directives Documents on File Type Date Recorded Patient Network Architect Expl anation Advance Directives and Living Will 04/09/2016 ADVANCE DIRECTIVE [facility] PO & LIVING WILL INSTRUCTIONS * Full Code (Latest Code Status on File) Date Activated Date Inactivated Comments 04/09/2016 5:04 PM 04/11/2016 1:55 AM This order reflects the patients wishes and were consensually agreed upon. Question Answer Comments Discussion of Advance Directives occurred with: Not Discussed Care Teams Supervisor Computer Operations Relationship Specialty Start Date End Date Ciera Evans DO [address] [place] [phone] PCP - General Family Medicine 06/01/20 documented as of this encounter
--- OUTSIDE RECORDS SUMMARY | 2024-03-02 21:07 | External Medical Summary | Summary of Care ---
Author Name Unknown Organization [facility] Address [address] [place] [address] Phone [phone] Care Team Providers Care Camp Tender Name Role Phone Ciera Evans Primary Care Provider [phone] Reason for Visit * Auth/Cert Specialty Diagnoses / Procedures Referred By Brandon t Referred To Contact Diagnoses Inflammation of sacroiliac joint (HCC) Inflammation of sacroiliac joint (HCC) [M46.1] Procedures INJECT ANESTHETIC AND/OR STEROID; SACROILIAC JOINT, W/ IMAGE GUIDANCE INJECT ANESTHETIC AND/OR STEROID SACROILIAC Fabian High DO [address] [place] [address] Or [facility] [address] [place] [phone] Referral ID Status Reason Start Date Expiration Date Visits Re quested Visits Authorized [id number] Encounter Details Date Type Department Care Team (Latest Contact Info) Description 02/04/2024 1:18 PM EDT - 02/04/2024 2:27 PM EDT Hospital Encounter OR [facility], Operating Room [facility] [address] [place] [address] Fabian High DO [address] [place] [address] Discharge Disposition: Home - Self Care Allergies Active Allergy Reactions Criticality Noted Date Comments Celecoxib Other (Please comment) 02/21/2010 Fixed drug eruption Chlorhexidine Bleeding,Hives,Itch ing High 10/15/2021 Ciprofloxacin Hcl Hives,Itching 10/07/2012 Pollen 10/07/2012 Food (See Comments) 10/07/2012 crab Chlorhexidine Gluconate Rash 04/09/2016 Ggqjxfdd-Cnoctcckj-Bupowqd h Rash 03/11/2017 Other Allergy (See Comments) Other (Please comment),Rash 10/07/2012 Chloroprep Shellfish-Derived Products Hives 2 Sulfa Antibiotics Other (Please comment) 10/07/2012 Fixed drug eruption Sulfamethoxazole 11/20/2009 Trimethoprim 11/20/2009 documented as of this encounter (statuses as of 02/05/2024) Medications Medication Sig Dispensed Refills Start Date [...] as of this encounter (statuses as of 02/05/2024) Active Problems Problem Noted Date Diagnosed Date [...] as of this encounter (statuses as of 02/05/2024) Immunizations Name Administration Dates Next Due COVID-19 [...] on file documented as of this encounter Last Filed Vital Signs Vital Sign Reading Time Taken Comments Blood Pressure 146/98 02/04/2024 2:24 PM EDT Pulse 91 02/04/2024 2:24 PM EDT Temperature 36.1 C (96.9 F) 02/04/2024 1:46 PM ED T Respiratory Rate 16 02/04/2024 2:24 PM EDT Oxygen Saturation 97% 02/04/2024 2:24 PM EDT Inhaled Oxygen Concentration - - Weight - - Height - - Body Mass Index - - documented in this encounter Functional Status Functional Status Response [...] No 04/10/2016 documented as of this encounter Discharge Instructions * Discharge Instr - AVS* Lennox Fabian So DO - 02/04/2024 2:21 PM EDT [facility] [address] [place] [address] Discharge Date: 02/04/2024 You may call [facility] at [phone] during business hours. For after-hours emergencies call 911. Your attending physician at the time of your discharge was: Fabian High DO [address] [facility] [address] The information below provides you with the instructions and the list of medications you need to betaking following discharge from the hospital. If you have any questions, please ask before leaving.Please carry this letter with you when you see your doctor in the clinic. Diet: Resume your normal diet If you are diabetic, follow your blood sugars closely for next 2-3 days as they are likely to be elevated. If you are having difficulty controlling your blood sugars call your family doctor or the physician that treats your diabetes. Activity: Do not engage in strenuous activity today Resume your normal activities tomorrow Do not soak in water for 24 hours. No swimming, hot tub or bath but showering is allowed. Do not use heat on the injection site for 24 hours. If uncomfortable ice may be helpful. Some injections may make your arms or legs weak for a few hours. Be extremely careful when walking or changing positions that you do not fall. Have someone assist you for the next 6 hours. If weakness or numbness becomes progressive CALL IMMEDIATELY or GO TO THE NEAREST EMERGENCY ROOM Do not restart physical therapy or chiropractic manipulation until 48 hours after your injection Call : If weakness or numbness suddenly becomes worse or become progressive If the injection site becomes red, swollen, warm to the touch, begins to bleed or drain fluid, or is excessively painful. If you have any questions Medications: Resume all the medications you were taking prior to your injection. Resume your anticoagulants tomorrow unless otherwise instructed by your family physician, cheese pancake roller or the anticoagulation clinic. Additional Instructions: It is recommended that you complete the provided hourly pain/activity log to track your pain relief to help you determine the level of relief you received from this injection. Driving: It will be OK to drive after 12-24 hours if no weakness is noted. Date you may return to work or school: N/A Follow Up: Please ensure that you have a scheduled telephone follow-up with keshav [facility] office at [phone] in 1-2 business days to review the results of the injection you received. documented in this encounter Progress Notes * Fabian High DO - 02/04/2024 2:[address] [facility] [place] [address] [facility] [address] OUTPATIENT SURGERY DISCHARGE SUMMARY NOTE Name: August Anthony Location: [place] [facility] Date: 02/04/2024 Time: 2:21 PM Surgery Date: 02/04/2024 Procedure: INJECT ANESTHETIC AND/OR STEROID SACROILIAC No laterality found for procedure #1 Surgeon: Fabian High DO Discharge Diagnosis: chronic left SIJ pain After examination of this patient, I have determined she is ready for discharge to home when the patient meets criteria. Discharge instructions were given to the patient. Fabian High DO OR [facility], [facility] [address] documented in this encounter H&P Notes * Fabian High DO - 02/04/2024 2:19 PM EDT Interventional Pain H&P Subjective: History of Present Illness: August Anthony is a 73 year old year-old female with a past medical history significant for chronic sacroiliac joint pain who is presenting for left SIJ block (L5 dorsal ramus, S1-3 lateral branches) #2 to improve her pain and function by assessing her candidacy for a RFA procedure. her pain is essentially unchanged since our last office visit with her. ASA 3 AW nml Review of Systems: A focused 12-pt ROS were of reviewed with the patient including difficulty with sleep, snoring, aspiration history, dysphagia, stomach pain, nausea and vomiting, severe headaches, confusion, open skin lesions or wounds, chest pain, shortness of breath, excessive thirst, somnolence, dysuria, incomplete bladder emptying, easy bruising, recent clotting problems or bleeding, depression or rushed thoughts unless noted previously. Allergies Review of patient's allergies indicates: Allergen Reactions Chlorhexidine Bleeding, Hives and Itching Celebrex [Celecoxib] Other (Please comment) Fixed drug eruption Ciprofloxacin Hcl Hives and Itching Environmental [Pollen] Food (See Comments) crab Hibiclens [Chlorhexidine Gluconate] Rash Maxitrol [Rghwfqar-Hctwrktcl-Mljjjhgh] Rash Other Allergy (See Comments) Other (Please comment) and Rash Chloroprep Shellfish-Derived Products Hives Sulfa Antibiotics Other (Please comment) Fixed drug eruption Sulfamethoxazole Trimethoprim Medications, Past Medical History, Past Surgical History reviewed and documented in Epic. See detailed report if needed. Pertinent Labs/Test Results: INR - OUTSIDE LAB (no units) Date Value 01/30/2024 4.0 No results found for: "CREATININE" HEMOGLOBIN, [id number] LAB (%) Date Value 08/27/2022 6.5 No results found for: "AMPHETAMINE", "BARBITURATES", "BENZODIAZEPINES", "BUPRENORPHINE", "METHADONE", "OPIATES", "OXYCODONE", "PHENCYCLIDINE", "CANNABINOIDS", "TOX SCREEN", "URINE", "TOX SCREEN-SERUM", "TOX SCREEN, URINE" Imaging: I personally reviewed the imaging and my findings were . MRI L SPINE WO CONTRAST Narrative: EXAM MRI L SPINE WO CONTRAST - 12/24/2023 11:21 am HISTORY Low back pain; Low back pain, no complicating feature; Chronic LBP duration >= 3 months; Worsening or not improving; None of the following: PT/chiropractic in the last 60 days or follow-up in the last 28 - 60 days COMPARISON MRI lumbar spine 09/18/2018 TECHNIQUE Sagittal T1 weighted, T2 weighted, and STIR scans, coronal T2 weighted scans, and axial T1 and T2 weighted scans of the lumbar spine were obtained. FINDINGS Counting from above there are 5 lumbar vertebrae and S1 is incorporated into the sacrum. The conus medullaris terminates at the level of L1. Mild straightening of the normal lumbar lordosis. Chronic L2 superior endplate compression deformity with prior vertebral augmentation. Multilevel intervertebral disc height loss and degenerative endplate changes are present, greatest at L4-L5. Bilateral renal sinus cysts. T12-L1: No significant spinal canal stenosis or neural foraminal narrowing. L1-L2: Diffuse disc bulge, bilateral facet arthropathy, and ligamentum flavum thickening contributeto mild to moderate spinal canal stenosis with crowding of the cauda equina nerve roots and partiallateral recess effacement. No significant neural foraminal narrowing. L2-L3: Asymmetric left disc bulge, bilateral facet arthropathy, and ligamentum flavum hypertrophy contribute to severe spinal canal stenosis with crowding of the cauda equina nerve roots and partial effacement of the left lateral recess. There is moderate left neural foraminal narrowing. Bilateral facet joint effusions are noted. L3-L4: Diffuse disc bulge, bilateral facet arthropathy, and ligamentum flavum thickening contributeto moderate to severe spinal stenosis with crowding of the cauda equina nerve roots and partial bilateral lateral recess effacement. Mild bilateral neural foraminal narrowing. L4-L5: The disc is severely narrowed. Diffuse disc bulge, bilateral facet arthropathy, and ligamentum flavum thickening contribute to mild spinal canal stenosis and mild right, moderate left neural foraminal narrowing. Type 2 endplate changes. L5-S1: Bilateral facet arthropathy without significant spinal canal stenosis or neural foraminal narrowing. Impression: IMPRESSION 1. 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 Findings are overall not significantly changed from 09/18/2018. I have personally reviewed this examination and agree with the resident/fellow physician's interpretation. Objective Physical Exam: Vital Signs: BP 127/74 | Pulse 85 | Temp 36.1 C (96.9 F) (Tympanic) | Resp 16 | SpO2 97% There is no height or weight on file to calculate BMI. General: No apparent distress. Eyes: pupils equal and round, sclera white, pupils midsize. ENT: mucous membranes moist Resp: Non-labored breathing CV: Extremities warm and well-perfused. Psych: Oriented; affect warm, insight good. Skin: No rashes or lesions appreciated on exposed skin Neuromuscular Exam: , TTT over left SIJ Assessment: August is a 73 year old year-old female with: Chronic left SIJ pain Osteoarthritis of the left SIJ Plan: The patient is undergoing left SIJ confirmatory block (L5 DR, S1-3 LBB) today to alleviate her painand improve her function. The risks, benefits and alternatives to the procedure were reviewed at length and the patient was provided the opportunity to ask questions which were answered to their voiced understanding. Following this comprehensive discussion, the patient opted to proceed. The patientwas consented to the procedure following this comprehensive conversation. Fabian High DO OR [facility], Operating Room [facility] [address] [place] [phone] documented in this encounter Nursing Notes * Aidee Unger RN - 02/04/2024 2:23 PM EDT Patient tolerated pain injection well. Ready for discharge to home. * Corazon Cortez RN - 02/04/2024 2:16 PM EDT Betadine wiped off with warm soap and water no redness or swelling or bleeding noted * Corazon Cortez RN - 02/04/2024 2:15 PM EDT Patient tolerating pain management injection well. documented in this encounter OR Notes * OR Surgeon - Fabian High DO - 02/04/2024 2:19 PM EDT Diagnostic L5 Dorsal Ramus, S1, S2, & S3 Lateral Branch Blocks for SI Joint Pain DATE: 02/04/2024 ATTENDING: Fabian High DO DIAGNOSIS BEFORE THE PROCEDURE: Sacroiliitis on the left side. DIAGNOSIS AFTER THE PROCEDURE: Sacroiliitis on the left side. PROCEDURES PERFORMED: 1. Diagnostic block of the left L5 dorsal ramus. 2. Diagnostic block of the left S1, S2, S3 lateral branches. 3. Fluoroscopy for precise needle placement. There was no curatorial assistant, EBL or drains placed during this procedure. ANESTHESIA: none MONITORS: Automatic blood pressure cuff, pulse oximetry. INDICATIONS: We had the pleasure of seeing August Anthony in the pain management clinic at the [facility] today. The patient has a history of sacroiliitis. The patient is here today for diagnostic L5 dorsal ramus, S1, S2, and S3 lateral branch nerve blocks. MEDICATIONS: Medications were reviewed in the [facility] EHR and compatible with the above procedure. ALLERGIES: Review of patient's allergies indicates: Allergen Reactions Chlorhexidine Bleeding, Hives and Itching Celebrex [Celecoxib] Other (Please comment) Fixed drug eruption Ciprofloxacin Hcl Hives and Itching Environmental [Pollen] Food (See Comments) crab Hibiclens [Chlorhexidine Gluconate] Rash Maxitrol [Ayrqswsl-Pmawfvweg-Tsikozcx] Rash Other Allergy (See Comments) Other (Please comment) and Rash Chloroprep Shellfish-Derived Products Hives Sulfa Antibiotics Other (Please comment) Fixed drug eruption Sulfamethoxazole Trimethoprim REVIEW OF SYSTEMS: The patient is negative for fever, chills, breathing difficulty, chest discomfort, active bleeding, active infection, bowel and bladder dysfunction. FOCUSED PHYSICAL EXAMINATION: The patient is awake, alert, oriented, and in no acute distress. Vital signs are stable. The patient is afebrile. The rest of the PE is essentially unchanged from the patient's recent visit to our office. We explained the procedure to the patient including the risks, benefits, and alternatives to the procedure. The patient verbalized understanding and is willing to proceed. PROCEDURE IN DETAIL: After the risks, benefits and alternatives were explained to the patient, the patient signed an informed consent. The patient then was taken to the procedure room and positioned prone on the procedure table. At that time, a time-out was carried out among the staff and the patient all agreeing upon the procedure to be performed as well as the correct side of the procedure. The patient's lower lumbar to sacral area on the was then prepped and draped in the usual sterile fashion using ChloraPrep. Monitors were as listed above. An AP view of the lower lumbar and sacrum was obtained showing clearly the left sacral ala. This was used as a target for the L5 dorsal ramus. U51-fjzpo 3.5 inch spinal needle was advanced under this view towards the above-stated target. Aftercontact with bone 0.5 ml of 0.5% bupivacaine was injected. Under the same fluoroscopic view using the S1 pedicle as a landmark, the S1 foramen was identified. This foramen was used as a landmark for the S1 lateral branch nerves. A 25-gauge, 3-1/2-inch spinal needle was advanced lateral to the forame n. After contact with bone 1ml of 0.5% bupivacaine was injected. Next, the same procedure was repeated for S2 and S3 levels. All needles were withdrawn at the end. The patient tolerated the procedurewell with stable vital signs. DISPOSITION: It was recommended that the patient create an hourly pain/activity log to track her pain relief to help her determine the level of relief she received from this injection over the next 12 hours or until the block subsides. 2. The patient was requested to call the pain medicine clinic within the next 1- 2 business days to review these results and was provided the phone number for this. Fabian High DO OR [facility], Operating Room [facility] [address] [place] [address] documented in this encounter Plan of Treatment Upcoming Encounters Date Type Department Care Team (Late st Contact Info) Description 02/05/2024 11:00 AM EDT [facility] [address] [place] [address] Nurse Lester Phone Call Interventional Pain Ce[facility] [address] [place] [address] 03/08/2024 2:45 PM EST Imaging Radiology [facility] [address] [place] [address] 04/02/2024 4:30 PM EST Imaging Radiology [address] [place] [address] 07/06/2024 12:00 PM EDT Hospital Encounter OR [facility], Operating Room, [facility] - [address] [place] [address] [address] [place] [phone] Annabella Fulton MD [address] [place] [address] 07/06/2024 12:00 PM EDT - 07/06/2024 1:00 PM EDT Surgery OR [facility], Operating Room, [facility] - [address] [place] [address] [address] [place] [phone] Annabella Fulton MD [address] [place] [address] COLONOSCOPY FLEXIBLE PROXIMAL DIAGNOSTIC 12/01/2024 5:15 PM EDT Office Visit Gynecology/Obstet [facility] [address] [place] [address] Aurora Baldwin PA-C [address] [place] [address] Scheduled Procedures Name Priority Associated Diagnoses Date/Ti me COLONOSCOPY FLEXIBLE PROXIMAL DIAGNOSTIC History of colon polyps 07/06/2024 12:00 [...] Not on filedocumented as of this encounter Procedures Procedure Name Priority Date/Time Associated Diagnosis Comments FLUORO INTERVENTIONAL PAIN PROCEDURE NONBILLABLE Routine 02/04/2024 2:28 PM EDT documented in this encounter Results * FLUORO INTERVENTIONAL PAIN PROCEDURE NONBILLABLE (02/04/2024 2:28 PM EDT) Narrative Scheduling, Silent - 02/04/2024 2:28 PM EDT This procedure will not be read by a Radiologist. Please see operative note. Fabian High DO RAD FLUOROSCOPY documented in this encounter Administered Medications Inactive Administered Medications - up to 3 most recent administrations Medication Order MAR Action Action Date Dose Rate Site BUPivacaine HCl (Sensorcaine) 0.5 % (PF) inj 5 mg 5 mg (1 mL), Injection, ONCE, On Fri02/04/24 at 1415, For 1 dose Given 02/04/2024 2:15 PM EDT 3.5 mL documented in this encounter Active and Recently Administered Medications Times are shown in EDT. Scheduled Medication Order 02/02/2024 02/03/2024 02/04/2024 BUPivacaine HCl (Sensorcaine) 0.5 % (PF) inj 5 mg (COMPLETED) 5 mg (1 mL), Injection, ONCE, On Fri02/04/24 at 1415, For 1 dose 1415 (Given - Provid er: Corazon Cortez RN - Comment: Left SIT blockdivided doses) Iohexol (Omnipaque 240) inj 0.5 mL 0.5 mL, Injection, ONCE, On Fri02/04/24 at 1415, For 1 dose 1415 (Not Given - Pr ovider: Corazon Cortez RN - Reason: Order Clarified) lidocaine 1 % inj 20 mg 20 mg (2 mL), Subcutaneous, ONCE, On Fri02/04/24 at 1415, For 1 dose 1415 (Not Given - Pr ovider: Corazon Cortze RN - Reason: Order Clarified) Triamcinolone Acetonide (Kenalog) 40 MG/ML inj 40 mg 40 mg, Intra-Articular, ONCE, On Fri02/04/24 at 1415, For 1 dose 1415 (Not Given - Pr ovider: Corazon Cortez RN - Reason: Order Clarified) documented in this encounter Advance Directives Documents on File Type Date Recorded 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 Question Answer Comments Discussion of Advance Directives occurred with: Not Discussed Care Teams Camp Tender Relationship Specialty Start Date End Date Ciera Evans DO [address] [place] [address] PCP - General Family Medicine 06/01/20 documented as of this encounter
--- OUTSIDE RECORDS SUMMARY | 2024-03-02 21:07 | External Medical Summary | Summary of Care ---
Author Name Unknown Organization [facility] Address [address] [facility] [place] [address] Phone [phone] Care Team Providers Care Venetian Blind Washer Name Role Phone NathanCiera [place] BURNETT Primary Care Provider [phone] Reason for Visit * Reason Onset Date Comments Follow Up 02/05/2024 Encounter Details Date Type Department Care Team (Late st Contact Info) Description 02/05/2024 11:00 AM EDT Scheduled Telephone Interventional Pain Center, [facility] [address] [place] [address] [facility], Nurse Phone Call Interventional Pain [facility] [address] [place] [phone] Pain of left sacroiliac joint*; Osteoarthritis of left sacroiliac joint (HCC) Allergies Active Allergy Reactions Criticality Noted Date Comments Celecoxib Other (Please comment) 02/21/2010 Fixed drug eruption Chlorhexidine Bleeding,Hives,Itch ing High 10/15/2021 Ciprofloxacin Hcl Hives,Itching 10/07/2012 Pollen 10/07/2012 Food (See Comments) 10/07/2012 crab Chlorhexidine Gluconate Rash 04/09/2016 Mhkxshhx-Ztlsekzqf-Ktabgub h Rash 03/11/2017 Other Allergy (See Comments) [...] as of this encounter Miscellaneous Notes * Addendum Note - Fabian High DO - 02/05/2024 4:47 PM EDTAddended by: FABIAN HIGH on: 02/05/2024 04:47 PM Modules accepted: Orders [...] Description 03/08/2024 2:45 PM EST Imaging Radiology [facility] [address] [place] [address] 04/02/2024 4:30 PM EST Imaging Radiology [facility] [place] [address] 07/06/2024 12:00 PM EDT Hospital Encounter OR [facility], Operating Room, [facility] - [address] [place] [phone] Annabella Futlon MD [address] [place] [address] 07/06/2024 12:00 PM EDT - 07/06/2024 1:00 PM EDT Surgery OR [facility], Operating Room, [facility] Floor [address] [place] [address] Annabella Fulton MD [address] [place] [address] COLONOSCOPY FLEXIBLE PROXIMAL DIAGNOSTIC 12/01/2024 5:15 PM EDT Office Visit Gynecology/[facility] [address] [place] [address] Aurora Baldwin PA-C [address] [place] [address] Scheduled Orders Name Type Priority Associated Diagnoses [...] joint (HCC) Screening mammogram for breast cancer History of colon polyps Personal history of colonic polyps documented in this encounter Advance Directives Documents on File Type Date Recorded 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 Question Answer Comments Discussion of Advance Directives occurred with: Not Discussed Care Teams Venetian Blind Washer Relationship Specialty Start Date End Date Ciera Evans DO [address] [place] [address] PCP - General Family Medicine 06/01/20 documented as of this encounter
--- OUTSIDE RECORDS SUMMARY | 2024-03-02 21:07 | External Medical Summary | Summary of Care ---
Author Name Unknown Organization [facility] Address [address] [facility] [place] [address] Phone [phone] Care Team Providers Care Impress Associate Name Role Phone NathanCiera Marshall BURNETT Primary Care Provider [phone] Reason for Visit * Reason Onset Date Comments Follow Up 02/05/2024 Encounter Details Date Type Department Care Team (Late st Contact Info) Description 02/05/2024 11:00 AM EDT Scheduled Telephone Interventional Pain Center, [facility] [address] [place] [address] [facility], Nurse Phone Call Interventional Pain [facility] [address] [place] [phone] Arrived Allergies Active Allergy Reactions Criticality Noted Date Comments Celecoxib Other (Please comment) 02/21/2010 Fixed drug eruption Chlorhexidine Bleeding,Hives,Itch ing High 10/15/2021 Ciprofloxacin Hcl Hives,Itching 10/07/2012 Pollen 10/07/2012 Food (See Comments) 10/07/2012 crab Chlorhexidine Gluconate Rash 04/09/2016 Omhirbae-Iluioawao-Aeajsqt h Rash 03/11/2017 Other Allergy (See Comments) [...] Description 03/08/2024 2:45 PM EST Imaging Radiology [facility] [address] [place] [address] 04/02/2024 4:30 PM EST Imaging Radiology [facility] 1st [facility] [address] [place] [address] 07/06/2024 12:00 PM EDT Hospital Encounter OR [facility], Operating Room, [facility] Floor [address] [place] [phone] Annabella Fulton MD [address] [place] [address] 07/06/2024 12:00 PM EDT - 07/06/2024 1:00 PM EDT Surgery OR [facility], Operating Room, [facility] - [address] [place] [address] [address] [place] [phone] Annabella Fulton MD [address] [place] [address] COLONOSCOPY FLEXIBLE PROXIMAL DIAGNOSTIC 12/01/2024 5:15 PM EDT Office Visit Gynecology/Obstetri [facility] [address] [place] [address] Aurora Baldwin PA-C [address] [place] [address] Scheduled Procedures Name Priority Associated Diagnoses Date/Ti [...] Not on filedocumented as of this encounter Advance Directives Documents on File Type Date 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 Question Answer Comments Discussion of Advance Directives occurred with: Not Discussed Care Teams Impress Associate Relationship Specialty Start Date End Date Ciera Evans DO [address] [place] [address] PCP - General Family Medicine 06/01/20 documented as of this encounter
--- OUTSIDE RECORDS SUMMARY | 2024-03-02 21:07 | External Medical Summary | Summary of Care ---
Author Name Unknown Organization [facility] Address [address] [place] [address] Phone [phone] Care Team Providers Care Plastics Engineering Teacher Name Role Phone Ciera Evans Primary Care Provider [phone] Reason for Visit * Reason Onset Date Comments Advice 01/05/2024 Encounter Details Date Type Department Care Team (Late st Contact Info) Description 01/05/2024 Telephone General Surgery, [address] [address] Yuan Chavez MD Advice Allergies Active Allergy Reactions Criticality Noted Date Comments Celecoxib Other (Please comment) 02/21/2010 Fixed drug eruption Chlorhexidine Bleeding,Hives,Itch ing High 10/15/2021 Ciprofloxacin Hcl Hives,Itching 10/07/2012 Pollen 10/07/2012 Food (See Comments) 10/07/2012 crab Chlorhexidine Gluconate Rash 04/09/2016 Uzvfrrto-Wroppyigq-Psqskaw h Rash 03/11/2017 Other Allergy (See Comments) Other (Please comment),Rash 10/07/2012 Chloroprep Shellfish-Derived Products Hives Sulfa Antibiotics Other (Please comment) 10/07/2012 Fixed drug eruption Sulfamethoxazole 11/20/2009 Trimethoprim 11/20/2009 documented as of this encounter (statuses as of 02/11/2024) Medications Medication Sig Dispensed Refills Start Date [...] Monohydrate 100 MG Oral Tablet 10/28/2023 Active documented as of this encounter (statuses as of 02/11/2024) Active Problems Problem Noted Date Diagnosed Date [...] as of this encounter (statuses as of 02/11/2024) Immunizations Name Administration Dates Next Due COVID-19 [...] encounter Miscellaneous Notes * Telephone Encounter - Stacia Son OSA - 02/11/2024 8:26 AM EDT Patient cancelled appointment with Dr Chavez. * Telephone Encounter - Stacia Son OSA - 01/05/2024 10:47 AM EDT Lmom to reschedule with another provider * Telephone Encounter - Tasia Mcdermott LPN - 01/05/2024 9:27 AM EDT Patient is coming in to update h and p for surgery should she come in with someone else? She is with Scott. documented in this encounter Plan of Treatment Upcoming Encounters Date Type Department Care Team (Latest Contact Info) Description 03/08/2024 2:45 PM EST Imaging Radiology [address] [place] [address] 04/02/2024 4:30 PM EST Imaging Radiology [facility] 1st [facility] [address] [place] [address] 07/06/2024 12:00 PM EDT Hospital Encounter OR [facility], Operating Room, [facility] - 4th Floor [address] [phone] Annabella Fulton MD [address] [place] [address] 07/06/2024 12:00 PM EDT - 07/06/2024 1:00 PM EDT Surgery OR [facility], Operating Room, [facility] - 4th Floor [address] [phone] Annabella Fulton MD [address] [place] [address] COLONOSCOPY FLEXIBLE PROXIMAL DIAGNOSTIC 12/01/2024 5:15 PM EDT Office Visit Gynecology/Obstetri cs [facility] [address] [place] [address] Aurora Baldwin PA-C [address] [place] [address] Scheduled Procedures Name Priority Associated Diagnoses Date/Ti me COLONOSCOPY FLEXIBLE PROXIMA L DIAGNOSTIC History of colon polyps 07/06/2024 12:00 PM EDT ABLATION RADIOFREQUENCY SACROILIAC Chronic left sacroiliac joint pain Health Maintenance Due Date Last Done Comments [...] Documents on File Type Date Recorded Patient Dish Person Expl anation Advance Directives and Living Will 04/09/2016 ADVANCE DIRECTIVE [facility] EM[facility]GENCY DEPARTMENT PO & LIVING WILL INSTRUCTIONS * Full Code (Latest Code Status on File) Date Activated Date Inactivated Comments 04/09/2016 5:04 PM 04/11/2016 1:55 AM This order reflects the patients wishes and were consensually agreed upon. Question Answer Comments Discussion of Advance Directives occurred with: Not Discussed Care Teams Plastics Engineering Teacher Relationship Specialty Start Date End Date Ciera Evans DO [address] [place] [address] PCP - General Family Medicine 06/01/20 documented as of this encounter
[2024-03-03] MEDS: HYDROmorphone INJ 1 MG/ML SYRINGE IV PRN (00:52)
[2024-03-03] MEDS: POLYETHYLENE (MIRALAX) 17 GM PACK PO SCH (05:51)
[2024-03-03] MEDS ORDERED: GABAPENTIN 300 MG CAP PO SCH (06:00)
[2024-03-03] MEDS ORDERED: ceFAZolin 2000MG 2,000 MG/15 ML SYR IV SCH (06:00)
[2024-03-03] MEDS ORDERED: ACETAMINOPHEN 500 MG TAB PO SCH (06:00)
[2024-03-03] MEDS ORDERED: LR 15ML/HR IV SCH (06:00)
[2024-03-03] MEDS ORDERED: LR 60ML/HR IV SCH (06:00)
[2024-03-03] MEDS: VERAPAMIL HCL 40 MG TAB PO SCH (08:01)
[2024-03-03] MEDS: dexAMETHasone 6 MG in SYRINGE 0 ML IV SCH (08:02)
[2024-03-03] MEDS: CHOLECALCIFEROL 25 MCG (1000 UNITS) TAB PO SCH (08:02)
[2024-03-03 08:05] LABS: Basophils # (auto) 0.01 K/uL (0.00-0.20); Basophils % (auto) 0.1 %; Hematocrit (blood only) 35.8 % (37.0-47.0); Hemoglobin 11.9 g/dl (12.0-16.0); Immature Granulocytes # (auto) 0.04 K/uL (0.01-0.20); Immature Granulocytes % (auto) 0.4 %; Lymphocytes % (auto) 6.3 %; Mean Corpuscular Hemoglobin 28.7 pg (25.0-34.0); Mean Corpuscular Hgb Conc 33.2 g/dL (32.0-36.0); Mean Corpuscular Volume 86.5 fL (80.0-100.0); Mean Platelet Volume 10.4 fL (9.4-12.4); Monocytes # (auto) 0.49 K/uL (0.11-0.59); Monocytes % (auto) 5.1 %; Neutrophils # (auto) 8.38 K/uL (1.40-6.50); Neutrophils % (auto) 88.1 %; Platelet Count 314 K/uL (130-400); RDW Coefficient of Variation 13.2 % (11.5-14.5); RDW Standard Deviation 41.8 fL (36.4-46.3); Red Blood Count 4.14 M/uL (4.20-5.40); White Blood Count 9.52 K/ul (4.8-10.8)
[2024-03-03 08:25] LABS: Calcium 8.7 mg/dl (8.6-10.3); Potassium 4.5 mmol/L (3.5-5.1)
[2024-03-03] MEDS ORDERED: FLUTICASONE/VILANTEROL 200/25MCG 14 PUFFS/INHALER INH SCH (09:00)
[2024-03-03] MEDS ORDERED: hydroCHLOROthiazide 25 MG TAB PO SCH (09:00)
--- NOTE | 2024-03-03 09:19 | Orthopedic Progress Note ---
Date of Service March 03, 2024 Assessment & Plan (1) Neurogenic claudication due to lumbar spinal stenosis: Plan: At this time initiate physical therapy monitor TOMY output. Reinitiate her Lovenox bridge this evening. Monitor TOMY output. Admission and Anticipated Discharge Date Admission Date: March 02, 2024 Subjective Patient's back pain is controlled leg pain is improved Physical Exam Physical Exam: Patient is seen with a bedside. She is comfortable. Is good strength testing. Results & Data Vital Signs (Past 12 Hours) Vital Signs Temp Pulse Resp BP BP Pulse Ox O2 Del Method 03/03/24 07:28 Room Air 03/03/24 07:13 36.6 C 93 H 16 129/63 96 Room Air 03/03/24 04:06 36.5 C 92 H 19 95/64 L 94 Room Air 03/02/24 23:29 36.7 C 89 19 119/75 95 Room Air 03/02/24 21:30 Nasal Cannula O2 Flow Rate 03/03/24 07:28 03/03/24 07:13 03/03/24 04:06 03/02/24 23:29 03/02/24 21:30 3 Queries Orthopedic Spine Obesity: Yes
--- NOTE | 2024-03-03 14:48 | Hospitalist Progress Note ---
Date of Service March 03, 2024 Assessment & Plan (1) Neurogenic claudication due to lumbar spinal stenosis: (2) Antiphospholipid syndrome: (3) Migraine: (4) Borderline high cholesterol: (5) HTN (hypertension): (6) Asthma: Plan Ms. Anthony is a 73-year-old female with past medical history of lumbar spinal stenosis, asthma, vitamin D deficiency, depression, HTN, migraine, antiphospholipid syndrome who presents to the hospital on 03/02/2024 for decompression for lumbar spinal stenosis with neurogenic claudication. Patient to start lovenox bridge this evening for her know APS #Lumbar spinal stenosis s/p lumbar decompression 03/02/2024: POD [address] King Continue ICS Pain control per primary team Approved to start Lovenox bridge: -4mg warfarin at 1600 -lovenox 1mg/kg q 12 hours -PT/OT: likely to discharge with HH #Acute anemia 2/2 blood loss s/p post op losses hgb pre op 13, down to 11.9 CBC in am, no transfusion required CTM, transfuse <7 #Antiphospholipid syndrome: start lovenox bridge this evening INR in am Trend CBC "March 03 Coumadin 4 mg Lovenox 120 mg at HS March 04- Coumadin 4 mg Lovenox 120 mg twice daily March 08 INR check" #asthma: Continue albuterol as needed/continue montelukast #vitamin D deficiency: Continue vitamin D #depression: Continue Cymbalta # HTN: hold HCTZ/losartan to prevent hypotension -Hold home potassium supplement continue verapamil - monitor BP closely Full code DVT prophylaxis: On Lovenox/Coumadin bridge this evening Admission and Anticipated Discharge Date Admission Date: March 02, 2024 Subjective NAEO Reports some discomfort with transitioning from seated to standing, but otherwise reports resolution of RLE radiculopathy and endorses expected post operative discomfort Denies any sob, nausea, vomiting,or other acute concerns Physical Exam Constitutional: WD/WN, vitals as above Respiratory: normal respiratory effort, lungs clear to auscultation Cardiovascular: RRR, no murmur, no edema Gastrointestinal (Abdomen): normal bowel sounds, soft, nontender, no hepatosplenomegaly Results & Data Results & Data Vital Signs (Past 12 Hours) Vital Signs Temp Pulse Resp BP Pulse Ox O2 Del Method 03/03/24 13:00 36.7 C 99 H 17 136/76 93 Room Air 03/03/24 07:28 Room Air 03/03/24 07:13 36.6 C 93 H 16 129/63 96 Room Air 03/03/24 04:06 36.5 C 92 H 19 95/64 L 94 Room Air Laboratory Results Short CBC 03/03/24 Range/Units 07:26 WBC 9.52 (4.8-10.8) K/ul Hgb 11.9 L (12.0-16.0) g/dl Hct 35.8 L (37.0-47.0) % Plt Count 314 (130-400) K/uL BMP 03/03/24 07:26 Sodium 132 L Potassium 4.5 Chloride 100 Carbon Dioxide 22 BUN 22 Creatinine 1.00 Glucose 170 H Calcium 8.7 Medications Administered Home Medications Medication Instructions Recorded Confirmed Last Taken acetaminophen 650 mg 650 mg PO Q12H PRN Pain 02/28/21 03/02/24 2 Days Ago tablet,extended release ~06/05/22 albuterol sulfate 90 mcg/actuation 1 inh inhalation QID PRN sob 02/28/21 03/02/24 06/07/22 05:00 aerosol inhaler carboxymethylcellulose sodium 1 % 1 drp ophthalmic (eye) TID 02/28/21 03/02/24 03/01/24 23:00 eye liquid gel drops cholecalciferol (vitamin D3) 50 50 mcg PO QAM 02/28/21 03/02/24 02/29/24 mcg (2,000 unit) capsule (Vitamin D3) hydrochlorothiazide 12.5 mg capsule 12.5 mg PO QAM 02/28/21 03/02/24 03/01/24 09:00 losartan 25 mg tablet 25 mg PO BID 02/28/21 03/02/24 03/01/24 13:00 montelukast 10 mg tablet 10 mg PO HS 02/28/21 03/02/24 03/01/24 23:00 (Singulair) scopolamine base 1 mg over 3 days 1 patch transdermal Q3D PRN Motion 02/28/21 03/02/24 03/02/24 09:00 transdermal patch Sickness sumatriptan succinate 100 mg 100 mg PO UD PRN Migraine Headache 02/28/21 03/02/24 04/23/22 06:00 tablet (Imitrex) triamcinolone acetonide 55 mcg 2 spray intranasal QPM 02/28/21 03/02/24 03/01/24 21:00 nasal spray aerosol (Nasacort Allergy) verapamil 120 mg tablet 120 mg PO QAM 02/28/21 03/02/24 03/01/24 09:00 potassium 99 mg tablet 297 mg PO QPM 09/28/21 03/02/24 03/01/24 18:00 sumatriptan succinate 6 mg/0.5 mL 6 mg subcut UD PRN Migraine 09/28/21 03/02/24 Unknown subcutaneous pen injector Headache biotin 2,500 mcg capsule 2,500 mcg PO QAM 06/05/22 03/02/24 02/03/24 duloxetine 60 mg capsule,delayed 60 mg PO QPM 06/05/22 03/02/24 03/01/24 21:00 release (Cymbalta) aluminum hydrox-magnesium carb 95 15 ml PO HS 12/10/22 03/02/24 02/28/24 23:00 mg-358 mg/15 mL oral suspension (Gaviscon) fluticasone 250 mcg-salmeterol 50 1 inh inhalation BID 01/19/24 03/02/24 03/01/24 09:00 mcg/dose blistr powdr for inhalation (Advair Diskus) warfarin 2 mg tablet 4 mg PO DAILY 01/19/24 03/02/24 02/26/24 18:00 enoxaparin 120 mg/0.8 mL 120 mg subcut Q12H 03/02/24 03/02/24 03/01/24 09:00 subcutaneous syringe (Lovenox) oxycodone 5 mg tablet 5 mg PO Q6H PRN pain #30 tabs 03/03/24 Unknown tramadol 50 mg tablet 50 mg PO Q6H PRN pain, moderate 03/03/24 Unknown #30 tabs Active Medications Generic Name Dose Route Start Last Admin Trade Name Freq PRN Reason Stop Dose Admin Duloxetine HCl 60 mg 03/02/24 21:00 03/02/24 20:52 Duloxetine Hcl 60 Mg Cap PO 04/01/24 20:59 60 mg QPM ARYAN Administration Fluticasone Propionate 2 sprays 03/02/24 21:00 03/02/24 20:52 Fluticasone Propionate Na Spr 16 Gm Btl NA 04/01/24 20:59 2 sprays QPM ARYAN Administration Protocol Hydromorphone HCl 1 mg 03/02/24 16:24 03/03/24 00:52 Hydromorphone Inj 1 Mg/Ml Syringe IV 03/16/24 16:23 1 mg Q3H PRN Administration SEVERE Pain (Scale 7,8,9,10) Dexamethasone 6 mg/ Syringe 1.5 mls @ 1 mls/min 03/03/24 09:00 03/03/24 08:02 IV 03/05/24 09:02 1 mls/min DAILY ARYAN Administration Lactobacillus Acidophilus 1,250 mg 03/02/24 20:00 03/03/24 08:01 Advanced Probiotic 625 Mg Capsule PO 04/01/24 19:59 Not Given DAILY ARYAN Montelukast Sodium 10 mg 03/02/24 21:00 03/02/24 20:52 Montelukast Sodium 10 Mg Tablet PO 04/01/24 20:59 10 mg HS ARYAN Administration Oxycodone HCl 5 - 10 mg 03/02/24 16:24 03/03/24 11:08 Oxycodone Hcl Ir 5 Mg Tab (Immediate Release) PO 03/16/24 16:23 10 mg Q4H PRN Administration Pain & Pre PT Polyethylene Glycol 17 gm 03/03/24 06:00 03/03/24 12:04 Polyethylene (Miralax) 17 Gm Pack PO 04/02/24 05:59 17 gm Q6 ARYAN Administration Fluticasone/Salmeterol 1 puffs 03/02/24 21:00 03/03/24 08:02 Fluticasone/Salmeterol 250/50 (Advair) 14 Puff/1 Inhaler INH 04/01/24 20:59 1 puffs BID ARYAN Administration Senna/Docusate Sodium 2 tab 03/02/24 21:00 03/02/24 20:52 Docusate Sodium/Senna 50/8.6mg Tab PO 04/01/24 20:59 2 tab HS ARYAN Administration Verapamil HCl 120 mg 03/03/24 09:00 03/03/24 08:01 Verapamil Hcl 40 Mg Tab PO 04/02/24 08:59 120 mg QAM ARYAN Administration Vitamin D 50 mcg 03/03/24 09:00 03/03/24 08:02 Cholecalciferol 25 Mcg (1000 Units) Tab PO 04/02/24 08:59 50 mcg QAM ARYAN Administration
[2024-03-03] MEDS ORDERED: Nursing to Pharmacy Communication SCH (15:15)
[2024-03-03] MEDS: WARFARIN SOD 4 MG TAB PO SCH (15:58)
[2024-03-03] MEDS ORDERED: WARFARIN SOD 5 MG TAB PO SCH (16:00)
[2024-03-03] MEDS: ENOXAPARIN INJ 120 MG/0.8 ML SYR SQ SCH (19:54)
[2024-03-03] MEDS ORDERED: ENOXAPARIN 1 MG/KG SQ SCH (21:00)
--- NOTE | 2024-03-04 07:00 | Fluoroscopy Report ---
FL lumbar spine 2-3V CLINICAL HISTORY: L2-L4 DECOMPRESSION AND FUSION POSSIBLE INTERBODY COMPARISON STUDY: None FLUOROSCOPY TIME: 33.1 seconds FLUOROSCOPY IMAGES: 2 EXPOSURE DOSE: 34.03 mGy FINDINGS: Discectomy with posterior interbody rods and screw fusion at what is labeled the L2-L4 leve ls. Exact numbering cannot be confirmed secondary to magnification. Cement material is noted within a n upper lumbar segment, likely L2. No acute fracture identified. IMPRESSION: Fluoroscopic assistance as above. ACT 112: Negative or not required by law. Electronically signed by: Hakeem Crews M.D. 03/04/2024 6:58 AM
[2024-03-04 07:29] LABS: Hematocrit (blood only) 32.2 % (37.0-47.0); Hemoglobin 10.7 g/dl (12.0-16.0); Mean Corpuscular Hgb Conc 33.2 g/dL (32.0-36.0); Mean Corpuscular Volume 87.3 fL (80.0-100.0); Mean Platelet Volume 10.8 fL (9.4-12.4); Platelet Count 267 K/uL (130-400); RDW Coefficient of Variation 13.2 % (11.5-14.5); RDW Standard Deviation 42.1 fL (36.4-46.3); Red Blood Count 3.69 M/uL (4.20-5.40); White Blood Count 10.05 K/ul (4.8-10.8)
[2024-03-04 07:49] LABS: BUN Creatinine Ratio 26.4 (10-20); Calcium 8.9 mg/dl (8.6-10.3); Creatinine Clr Calc Pharmacy 72.5 ml/min; Potassium 4.3 mmol/L (3.5-5.1)
[2024-03-04 07:59] LABS: INR 1.3 (0.9-1.1); Prothrombin Time 13.5 Seconds (9.0-12.0)
--- NOTE | 2024-03-04 08:27 | Orthopedic Progress Note ---
Date of Service March 04, 2024 Assessment & Plan (1) Neurogenic claudication due to lumbar spinal stenosis: Plan: At this time we will continue physical therapy. Discontinue her [place] today. Monitor TOMY output. Anticipate discharge tomorrow. Admission and Anticipated Discharge Date Admission Date: March 02, 2024 Subjective Back pain is controlled leg symptoms improved Physical Exam Physical Exam: Patient is currently bed. She is comfortable. Skin strength testing. Results & Data Vital Signs (Past 12 Hours) Vital Signs Temp Pulse Resp BP Pulse Ox O2 Del Method 03/04/24 07:24 36.7 C 82 16 105/66 93 Room Air 03/03/24 21:35 Room Air Queries Orthopedic Spine Obesity: Yes
--- NOTE | 2024-03-04 10:11 | Hospitalist Progress Note ---
Date of Service March 04, 2024 Assessment & Plan (1) Neurogenic claudication due to lumbar spinal stenosis: (2) Antiphospholipid syndrome: (3) Migraine: (4) Borderline high cholesterol: (5) HTN (hypertension): (6) Asthma: Plan Ms. Anthony is a 73-year-old female with past medical history of lumbar spinal stenosis, asthma, vitamin D deficiency, depression, HTN, migraine, antiphospholipid syndrome who presents to the hospital on 03/02/2024 for decompression for lumbar spinal stenosis with neurogenic claudication. Patient to continue lovenox bridge Patient doing well with plans to d/c meza today and possible dc tomorrow #Lumbar spinal stenosis s/p lumbar decompression 03/02/2024: POD [address] King Continue ICS Pain control per primary team Approved to start Lovenox bridge: -4mg warfarin at 1600 -lovenox 1mg/kg q 12 hours -PT/OT: likely to discharge with HH #Acute anemia 2/2 blood loss s/p post op losses hgb pre op 13, down to 11.9 CBC in am, no transfusion required CTM, transfuse <7 #Antiphospholipid syndrome: start lovenox bridge this evening INR 1.3 Trend CBC "March 03 Coumadin 4 mg Lovenox 120 mg at HS March 04- Coumadin 4 mg Lovenox 120 mg twice daily March 08 INR check" #asthma: Continue albuterol as needed/continue montelukast #vitamin D deficiency: Continue vitamin D #depression: Continue Cymbalta # HTN: hold HCTZ/losartan to prevent hypotension -Hold home potassium supplement continue verapamil - monitor BP closely Full code DVT prophylaxis: On Lovenox/Coumadin bridge Admission and Anticipated Discharge Date Admission Date: March 02, 2024 Subjective NAEO Reports pain is well controlled at this time Denies any other acute concerns, excited for meza to be removed Physical Exam Constitutional: WD/WN, vitals as above Respiratory: normal respiratory effort, lungs clear to auscultation Cardiovascular: RRR, no murmur, no edema Results & Data Results & Data Vital Signs (Past 12 Hours) Vital Signs Temp Pulse Resp BP Pulse Ox O2 Del Method 03/04/24 09:00 94 H 127/64 03/04/24 07:24 36.7 C 82 16 105/66 93 Room Air Laboratory Results Short CBC 03/04/24 Range/Units 06:37 WBC 10.05 (4.8-10.8) K/ul Hgb 10.7 L (12.0-16.0) g/dl Hct 32.2 L (37.0-47.0) % Plt Count 267 (130-400) K/uL BMP 03/04/24 06:37 Sodium 135 L Potassium 4.3 Chloride 100 Carbon Dioxide 26 BUN 24 H Creatinine 0.91 Glucose 169 H Calcium 8.9 Medications Administered Home Medications Medication Instructions Recorded Confirmed Last Taken acetaminophen 650 mg 650 mg PO Q12H PRN Pain 02/28/21 03/02/24 2 Days Ago tablet,extended release ~06/05/22 albuterol sulfate 90 mcg/actuation 1 inh inhalation QID PRN sob 02/28/21 03/02/24 06/07/22 05:00 aerosol inhaler carboxymethylcellulose sodium 1 % 1 drp ophthalmic (eye) TID 02/28/21 03/02/24 03/01/24 23:00 eye liquid gel drops cholecalciferol (vitamin D3) 50 50 mcg PO QAM 02/28/21 03/02/24 02/29/24 mcg (2,000 unit) capsule (Vitamin D3) hydrochlorothiazide 12.5 mg capsule 12.5 mg PO QAM 02/28/21 03/02/24 03/01/24 09:00 losartan 25 mg tablet 25 mg PO BID 02/28/21 03/02/24 03/01/24 13:00 montelukast 10 mg tablet 10 mg PO HS 02/28/21 03/02/24 03/01/24 23:00 (Singulair) scopolamine base 1 mg over 3 days 1 patch transdermal Q3D PRN Motion 02/28/21 03/02/24 03/02/24 09:00 transdermal patch Sickness sumatriptan succinate 100 mg 100 mg PO UD PRN Migraine Headache 02/28/21 4 04/23/22 06:00 tablet (Imitrex) triamcinolone acetonide 55 mcg 2 spray intranasal QPM 02/28/21 03/02/24 03/01/24 21:00 nasal spray aerosol (Nasacort Allergy) verapamil 120 mg tablet 120 mg PO QAM 02/28/21 03/02/24 03/01/24 09:00 potassium 99 mg tablet 297 mg PO QPM 09/28/21 03/02/24 03/01/24 18:00 sumatriptan succinate 6 mg/0.5 mL 6 mg subcut UD PRN Migraine 09/28/21 03/02/24 Unknown subcutaneous pen injector Headache biotin 2,500 mcg capsule 2,500 mcg PO QAM 06/05/22 03/02/24 02/03/24 duloxetine 60 mg capsule,delayed 60 mg PO QPM 06/05/22 03/02/24 03/01/24 21:00 release (Cymbalta) aluminum hydrox-magnesium carb 95 15 ml PO HS 12/10/22 03/02/24 02/28/24 23:00 mg-358 mg/15 mL oral suspension (Gaviscon) fluticasone 250 mcg-salmeterol 50 1 inh inhalation BID 01/19/24 03/02/24 03/01/24 09:00 mcg/dose blistr powdr for inhalation (Advair Diskus) warfarin 2 mg tablet 4 mg PO DAILY 01/19/24 03/02/24 02/26/24 18:00 enoxaparin 120 mg/0.8 mL 120 mg subcut Q12H 03/02/24 03/02/24 03/01/24 09:00 subcutaneous syringe (Lovenox) oxycodone 5 mg tablet 5 mg PO Q6H PRN pain #30 tabs 03/03/24 Unknown tramadol 50 mg tablet 50 mg PO Q6H PRN pain, moderate 03/03/24 Unknown #30 tabs Active Medications Generic Name Dose Route Start Last Admin Trade Name Freq PRN Reason Stop Dose Admin Duloxetine HCl 60 mg 03/02/24 21:00 03/03/24 19:55 Duloxetine Hcl 60 Mg Cap PO 04/01/24 20:59 60 mg QPM ARYAN Administration Enoxaparin Sodium 120 mg 03/03/24 14:15 03/04/24 09:00 Enoxaparin Inj 120 Mg/0.8 Ml Syr SQ 04/02/24 14:14 120 mg Q12H ARYAN Administration Fluticasone Propionate 2 sprays 03/02/24 21:00 03/03/24 19:54 Fluticasone Propionate Na Spr 16 Gm Btl NA 04/01/24 20:59 2 sprays QPM ARYAN Administration Protocol Hydromorphone HCl 1 mg 03/02/24 16:24 03/03/24 00:52 Hydromorphone Inj 1 Mg/Ml Syringe IV 03/16/24 16:23 1 mg Q3H PRN Administration SEVERE Pain (Scale 7,8,9,10) Dexamethasone 6 mg/ Syringe 1.5 mls @ 1 mls/min 03/03/24 09:00 03/04/24 07:41 IV 03/05/24 09:02 1 mls/min DAILY ARYAN Administration Lactobacillus Acidophilus 1,250 mg 03/02/24 20:00 03/04/24 08:57 Advanced Probiotic 625 Mg Capsule PO 04/01/24 19:59 Not Given DAILY ARYAN Montelukast Sodium 10 mg 03/02/24 21:00 03/03/24 19:55 Montelukast Sodium 10 Mg Tablet PO 04/01/24 20:59 10 mg HS ARYAN Administration Oxycodone HCl 5 - 10 mg 03/02/24 16:24 03/04/24 03:13 Oxycodone Hcl Ir 5 Mg Tab (Immediate Release) PO 03/16/24 16:23 10 mg Q4H PRN Administration Pain & Pre PT Polyethylene Glycol 17 gm 03/03/24 06:00 03/04/24 05:33 Polyethylene (Miralax) 17 Gm Pack PO 04/02/24 05:59 17 gm Q6 ARYAN Administration Fluticasone/Salmeterol 1 puffs 03/02/24 21:00 03/04/24 07:40 Fluticasone/Salmeterol 250/50 (Advair) 14 Puff/1 Inhaler INH 04/01/24 20:59 1 puffs BID ARYAN Administration Senna/Docusate Sodium 2 tab 03/02/24 21:00 03/03/24 19:56 Docusate Sodium/Senna 50/8.6mg Tab PO 04/01/24 20:59 2 tab HS ARYAN Administration Verapamil HCl 120 mg 03/03/24 09:00 03/04/24 09:00 Verapamil Hcl 40 Mg Tab PO 04/02/24 08:59 120 mg QAM ARYAN Administration Vitamin D 50 mcg 03/03/24 09:00 03/04/24 09:00 Cholecalciferol 25 Mcg (1000 Units) Tab PO 04/02/24 08:59 50 mcg QAM ARYAN Administration Warfarin Sodium 4 mg 03/03/24 16:00 03/03/24 15:58 Warfarin Sod 4 Mg Tab PO 04/02/24 15:59 4 mg DAILY@1600 ARYAN Administration
[2024-03-05 07:53] LABS: Hematocrit (blood only) 32.9 % (37.0-47.0); Hemoglobin 10.7 g/dl (12.0-16.0); Mean Corpuscular Hemoglobin 28.5 pg (25.0-34.0); Mean Corpuscular Hgb Conc 32.5 g/dL (32.0-36.0); Mean Corpuscular Volume 87.5 fL (80.0-100.0); Mean Platelet Volume 10.5 fL (9.4-12.4); Platelet Count 279 K/uL (130-400); RDW Coefficient of Variation 13.4 % (11.5-14.5); RDW Standard Deviation 42.9 fL (36.4-46.3); Red Blood Count 3.76 M/uL (4.20-5.40)
[2024-03-05 08:01] VITALS: PULSE 74; RESP 16; TEMP 99; O2SAT 95
[2024-03-05 08:09] LABS: Creatinine Clr Calc Pharmacy 80.5 ml/min
[2024-03-05 08:18] LABS: INR 1.5 (0.9-1.1); Prothrombin Time 16.1 Seconds (9.0-12.0)
--- NOTE | 2024-03-05 10:16 | Hospitalist Progress Note ---
Date of Service March 05, 2024 Assessment & Plan (1) Neurogenic claudication due to lumbar spinal stenosis: (2) Antiphospholipid syndrome: (3) Migraine: (4) Borderline high cholesterol: (5) HTN (hypertension): (6) Asthma: Plan Ms. Anthony is a 73-year-old female with past medical history of lumbar spinal stenosis, asthma, vitamin D deficiency, depression, HTN, migraine, antiphospholipid syndrome who presents to the hospital on 03/02/2024 for decompression for lumbar spinal stenosis with neurogenic claudication. Patient to continue lovenox bridge. Patient with lovenox at home and INR check planned. Patient to hold losartan and HCTZ given low-normal BP on 1 agent at this time to prevent falls iso recent surgical intervention Follow up with PCP coordinated #Lumbar spinal stenosis s/p lumbar decompression 03/02/2024: POD [address] King Continue ICS Pain control per primary team Approved to start Lovenox bridge: -4mg warfarin at 1600 -lovenox 1mg/kg q 12 hours -PT/OT: likely to discharge with #Acute anemia 2/2 blood loss s/p post op losses hgb pre op 13, down to 11.9 CBC in am, no transfusion required CTM, transfuse <7 #Antiphospholipid syndrome: continue lovenox bridge INR 1.5 Trend CBC "March 03 Coumadin 4 mg Lovenox 120 mg at HS March 04- Coumadin 4 mg Lovenox 120 mg twice daily March 08 INR check" #asthma: Continue albuterol as needed/continue montelukast #vitamin D deficiency: Continue vitamin D #depression: Continue Cymbalta # HTN: hold HCTZ/losartan to prevent hypotension given BP consistently <120 at this time -Hold home potassium supplement continue verapamil - monitor BP closely Full code DVT prophylaxis: On Lovenox/Coumadin bridge Admission and Anticipated Discharge Date Admission Date: March 02, 2024 Subjective NAEO, INR 1.5 Discussed medications with patient, as her pressures have been low-normal on 1 agent, discussed holding losartan/hctz until told to resume by PCP to prevent syncope/falls/etc. Patient verbalized understanding Patient otherwise voiding bladder well and with small BM this am Reports control of post op discomfort Physical Exam Constitutional: WD/WN, vitals as above Respiratory: normal respiratory effort, lungs clear to auscultation Cardiovascular: RRR, no murmur, no edema Results & Data Results & Data Vital Signs (Past 12 Hours) Vital Signs Temp Pulse Resp BP Pulse Ox O2 Del Method 03/05/24 07:57 37.2 C 74 16 114/67 95 Room Air 03/04/24 22:43 Room Air Laboratory Results Short CBC 03/05/24 Range/Units 07:19 WBC 8.10 (4.8-10.8) K/ul Hgb 10.7 L (12.0-16.0) g/dl Hct 32.9 L (37.0-47.0) % Plt Count 279 (130-400) K/uL BMP 03/05/24 07:19 Creatinine 0.82 Medications Administered Home Medications Medication Instructions Recorded Confirmed Last Taken acetaminophen 650 mg 650 mg PO Q12H PRN Pain 02/28/21 03/02/24 2 Days Ago tablet,extended release ~06/05/22 albuterol sulfate 90 mcg/actuation 1 inh inhalation QID PRN sob 02/28/21 03/02/24 06/07/22 05:00 aerosol inhaler carboxymethylcellulose sodium 1 % 1 drp ophthalmic (eye) TID 02/28/21 03/02/24 03/01/24 23:00 eye liquid gel drops cholecalciferol (vitamin D3) 50 50 mcg PO QAM 02/28/21 03/02/24 02/29/24 mcg (2,000 unit) capsule (Vitamin D3) hydrochlorothiazide 12.5 mg capsule 12.5 mg PO QAM 02/28/21 03/02/24 03/01/24 09:00 losartan 25 mg tablet 25 mg PO BID 02/28/21 03/02/24 03/01/24 13:00 montelukast 10 mg tablet 10 mg PO HS 02/28/21 03/02/24 03/01/24 23:00 (Singulair) scopolamine base 1 mg over 3 days 1 patch transdermal Q3D PRN Motion 02/28/21 03/02/24 03/02/24 09:00 transdermal patch Sickness sumatriptan succinate 100 mg 100 mg PO UD PRN Migraine Headache 02/28/21 03/02/24 04/23/22 06:00 tablet (Imitrex) triamcinolone acetonide 55 mcg 2 spray intranasal QPM 02/28/21 03/02/24 03/01/24 21:00 nasal spray aerosol (Nasacort Allergy) verapamil 120 mg tablet 120 mg PO QAM 02/28/21 03/02/24 03/01/24 09:00 potassium 99 mg tablet 297 mg PO QPM 09/28/21 03/02/24 03/01/24 18:00 sumatriptan succinate 6 mg/0.5 mL 6 mg subcut UD PRN Migraine 09/28/21 03/02/24 Unknown subcutaneous pen injector Headache biotin 2,500 mcg capsule 2,500 mcg PO QAM 06/05/22 03/02/24 02/03/24 duloxetine 60 mg capsule,delayed 60 mg PO QPM 06/05/22 03/02/24 03/01/24 21:00 release (Cymbalta) aluminum hydrox-magnesium carb 95 15 ml PO HS 12/10/22 03/02/24 02/28/24 23:00 mg-358 mg/15 mL oral suspension (Gaviscon) fluticasone 250 mcg-salmeterol 50 1 inh inhalation BID 01/19/24 03/02/24 03/01/24 09:00 mcg/dose blistr powdr for inhalation (Advair Diskus) warfarin 2 mg tablet 4 mg PO DAILY 01/19/24 03/02/24 02/26/24 18:00 enoxaparin 120 mg/0.8 mL 120 mg subcut Q12H 03/02/24 03/02/24 03/01/24 09:00 subcutaneous syringe (Lovenox) oxycodone 5 mg tablet 5 mg PO Q6H PRN pain #30 tabs 03/03/24 Unknown tramadol 50 mg tablet 50 mg PO Q6H PRN pain, moderate 03/03/24 Unknown #30 tabs Active Medications Generic Name Dose Route Start Last Admin Trade Name Freq PRN Reason Stop Dose Admin Duloxetine HCl 60 mg 03/02/24 21:00 03/04/24 20:46 Duloxetine Hcl 60 Mg Cap PO 04/01/24 20:59 60 mg QPM ARYAN Administration Enoxaparin Sodium 120 mg 03/03/24 14:15 03/05/24 08:00 Enoxaparin Inj 120 Mg/0.8 Ml Syr SQ 04/02/24 14:14 120 mg Q12H ARYAN Administration Fluticasone Propionate 2 sprays 03/02/24 21:00 03/04/24 20:46 Fluticasone Propionate Na Spr 16 Gm Btl NA 04/01/24 20:59 2 sprays QPM ARYAN Administration Protocol Hydromorphone HCl 1 mg 03/02/24 16:24 03/03/24 00:52 Hydromorphone Inj 1 Mg/Ml Syringe IV 03/16/24 16:23 1 mg Q3H PRN Administration SEVERE Pain (Scale 7,8,9,10) Lactobacillus Acidophilus 1,250 mg 03/02/24 20:00 03/05/24 07:59 Advanced Probiotic 625 Mg Capsule PO 04/01/24 19:59 Not Given DAILY ARYAN Montelukast Sodium 10 mg 03/02/24 21:00 03/04/24 20:46 Montelukast Sodium 10 Mg Tablet PO 04/01/24 20:59 10 mg HS ARYAN Administration Oxycodone HCl 5 - 10 mg 03/02/24 16:24 03/05/24 05:36 Oxycodone Hcl Ir 5 Mg Tab (Immediate Release) PO 03/16/24 16:23 10 mg Q4H PRN Administration Pain & Pre PT Fluticasone/Salmeterol 1 puffs 03/02/24 21:00 03/05/24 08:00 Fluticasone/Salmeterol 250/50 (Advair) 14 Puff/1 Inhaler INH 04/01/24 20:59 1 puffs BID ARYAN Administration Senna/Docusate Sodium 2 tab 03/02/24 21:00 03/04/24 20:46 Docusate Sodium/Senna 50/8.6mg Tab PO 04/01/24 20:59 2 tab HS ARYAN Administration Verapamil HCl 120 mg 03/03/24 09:00 03/05/24 08:00 Verapamil Hcl 40 Mg Tab PO 04/02/24 08:59 120 mg QAM ARYAN Administration Vitamin D 50 mcg 03/03/24 09:00 03/05/24 08:00 Cholecalciferol 25 Mcg (1000 Units) Tab PO 04/02/24 08:59 50 mcg QAM ARYAN Administration Warfarin Sodium 4 mg 03/03/24 16:00 03/04/24 18:01 Warfarin Sod 4 Mg Tab PO 04/02/24 15:59 4 mg DAILY@1600 ARYAN Administration
--- NOTE | 2024-03-05 10:44 | Discharge Summary ---
Date of Service March 05, 2024 Admission HPI Per Admitting Provider This is a 73-year-old female who presents with chronic persistent back and leg pain after failing course of nonoperative care she is here for surgical intervention. Patient Principal Diagnosis Lumbar spinal stenosis with neurogenic claudication Discharge Data Allergies Allergy/AdvReac Type Severity Reaction Status Date / Time chlorhexidine Allergy Severe Hives Verified 03/02/24 11:04 celecoxib [From Celebrex] Allergy Intermediate Blister Verified 03/02/24 11:04 shellfish derived Allergy Intermediate crabs- Verified 03/02/24 11:04 diffuse welts (rhett mouth), swelling ciprofloxacin [From Cipro] Allergy Unknown rash, Verified 03/02/24 11:04 blisters Sulfa (Sulfonamide Allergy Unknown rash, Verified 03/02/24 11:04 Antibiotics) blisters isopropyl alcohol Allergy welted Verified 03/02/24 11:04 [From ChloraPrep Clear] solid bright red rash amoxicillin [From Augmentin] AdvReac Intermediate Vomiting Verified 03/02/24 11:04 clavulanic acid AdvReac Intermediate Vomiting Verified 03/02/24 11:04 [From Augmentin] Consultations 03/02/24 16:24 Consult Hospitalist Routine Procedures Performed Operation Date: 03/02/24 11:55 Actual Procedures p L2-L4 Decompression and Fusion, Spinal Cord Monitoring(Not Applicable) - Madhu King DO Ordered Studies 03/02/24 11:55 FL lumbar spine 2-3V Routine Hospital Course (1) Neurogenic claudication due to lumbar spinal stenosis: Patient underwent lumbar decompression and fusion tolerates well was taken to orthopedic floor postoperatively. Postoperatively she progressed appropriately with therapy. Extra strength testing. TOMY drain decreasing. Pain well- controlled. Subsidy discharged home. Discharge orders instructions from the chart for further review. Total Time Total Time Spent Total Time Spent (In Minutes): 20 minutes Discharge Plan Discharge Items Patient Disposition: Home - Self-Care Reason For Visit: Spinal Stenosis, Lumbar Region with Neurogenic Cla Discharge Diagnosis: Lumbar spinal stenosis with neurogenic claudication Activity: As commented below Non-emergency contact: Primary Care Provider Call non-emergency contact if: you have any medication questions Follow-up/Referrals: Ciera Evans D.O. [Primary Care Provider] - 03/08/24 2:00 pm Diet: Regular Addtl Attending Provider Instructions: ACTIVITY RECOMMENDATIONS: SELF CARE INSTRUCTIONS AFTER THORACIC/LUMBAR FUSIONS 1. You may walk to your tolerance. It is good exercise for your legs and back. Expect some back and intermittent leg aches and pains. 2. You may perform "counter-top" level activities (make a sandwich, shawna with a project, etc.). 3. No bending or lifting of more than 10 pounds or back twisting of any nature (roll like a log when turning in bed). 4. You may ride in a car for 20-30 minutes at a time. No driving until after your first visit with your doctor. 5. Frequent changes of position and restricting sitting to 30 minutes at a time will help limit the amount of back spasms and stiffness you may experience. 6. You may discontinue the use of ambulatory aids (cane, crutches, etc.) once your strength and confidence allow. 7. You may vp product marketing the shower and let water strike your incision when you arrive home at least once daily. Do not take a tub bath, sit in a hot tub or go into a swimming pool until after your first recheck in the office. 8. You may resume previous diet. SPECIAL CARE INSTRUCTIONS: VERY IMPORTANT TO READ AND REVIEW A. Your surgical incision has been closed with a cosmetic suture under the skin that will dissolve in about 6 weeks. In 14 days, you can use a pair of clean scissors and cut the suture that is left outside of the skin at the ends of your incision. 1. The small skin tapes can be removed 7 days after surgery if they have not fallen off by that point. 2. You may keep the wound open to air as much as possible to promote healing after post-op day number 5 unless told otherwise by your doctor. 3. If you think the wound looks like it is becoming infected (redness or worsening drainage) and/or you are experiencing fever, chill or worsening back pain and muscle spasms, contact the office so that we may evaluate you as soon as possible. B. Complications are uncommon, but please contact us if you have any signs or symptoms of: 1. wound infection (fever higher than 102.5 degrees F, redness, separation of wound, drainage, or increasing pain from the incision) 2. blood clots in legs (pain, swelling, redness and warmth in legs) 3. urinary tract infection (fever higher than 102.5 degrees F, burning upon urination or increased frequency of urination) 4. nerve problems (inability to walk on your toes or heels, numbness, loss of bowel or bladder control) 5. any other symptoms that concern you C. Please call the office at if you have any concerns or questions about your operation or recovery. D. No smoking! Smoking drastically decreases the chance of a solid fusion. E. Do not take any anti-inflammatory medications (Indocin, Advil, Motrin, Aspirin, Naprosyn, etc.) as these may inhibit the chance of a solid fusion. Tylenol is okay to take for pain. MANAGING PAIN AFTER SPINAL SURGERY 1. Narcotic medication is intended for short-term use and will be provided for surgical pain. Surgical pain usually lasts for a period of 4-6 weeks. Narcotic medication includes Percocet, Vicodin, Darvocet, Tylenol #3 or Lortab. 2. Longer-term pain is more appropriately treated with non-narcotic medication such as Tylenol ES. 3. Muscle spasm is not appropriately treated with narcotics. Muscle relaxers such as Soma, Flexeril or Skelaxin can be used along with Tylenol ES. 4. Remember that we all live with some "aches and pains". This is not unusual or uncommon after an injury or as we get older. a. Back pain is expected and may include muscle spasms for 4 to 6 weeks after surgery. The pain should gradually improve. If the pain worsens for no apparent reason, please contact the office. b. Intermittent leg pain may also be experienced and should not be concerned about unless it worsens for no apparent reason. If so, please contact the office. 5. We will provide appropriate medication within the normal guidelines of their prescribed use. We will also be very cautious and aware of potential abuse and extended duration of patients' medication needs. a. Pain medications are for your comfort and to assist with sleep and rest so that the tissue can heal. They are not provided in order to return to normal activity and should not be used through the day. To do so or worsening pain at night can result from ongoing tissue damage and development of tolerance to the prescribed medicine. 6. Please allow 2-3 days to process refills. Prescriptions will not be mailed but must be picked up at the office. FOLLOW UP VISIT: Keep your scheduled follow-up appointment. Any questions, please call the office at . Addtl Raise Miner Provider Instructions: You were followed by [facility] management. Your blood pressures were noted to be low-normal while admitted and only receiving your daily verapamil. Please continue to hold your hydrochlorothiazide and losartan until follow up with your PCP or if blood pressures consistently greater than 130 (systolic/top number). Please hold your potassium supplementation until repeat blood work and told to resume by your PCP. Pending Studies at Discharge: No Stand-Alone Forms: [facility], Smoking Cessation Medications and DC Order Prescriptions: New tramadol 50 mg tablet 50 mg PO Q6H PRN (Reason: pain, moderate) Qty: 30 0RF oxycodone 5 mg tablet 5 mg PO Q6H PRN (Reason: pain) Qty: 30 0RF Continued sumatriptan succinate [Imitrex] 100 mg Tablet 100 mg PO UD PRN (Reason: Migraine Headache) acetaminophen 650 mg Tablet Extended Release 650 mg PO Q12H PRN (Reason: Pain) verapamil 120 mg Tablet 120 mg PO QAM triamcinolone acetonide [Nasacort Allergy] 55 mcg Aerosol,[place] 2 spray INTRANASAL QPM montelukast [Singulair] 10 mg Tablet 10 mg PO HS scopolamine base 1 mg over 3 days Patch 3 Day 1 patch TRANSDERMAL Q3D PRN (Reason: Motion Sickness) albuterol sulfate 90 mcg/actuation Hfa Aerosol Inhaler 1 inh INHALATION QID PRN (Reason: sob) carboxymethylcellulose sodium 1 % Drops, Liquid Gel 1 drp OPHTHALMIC (EYE) TID cholecalciferol (vitamin D3) [Vitamin D3] 50 mcg (2,000 unit) Capsule 50 mcg PO QAM sumatriptan succinate 6 mg/0.5 mL Pen Injector 6 mg SUBCUT UD PRN (Reason: Migraine Headache) duloxetine [Cymbalta] 60 mg Capsule,Delayed Release(Dr/Ec) 60 mg PO QPM biotin 2,500 mcg Capsule 2,500 mcg PO QAM Gaviscon 95-358 mg/15 mL Suspension 15 ml PO HS fluticasone propion-salmeterol [Advair Diskus] 250-50 mcg/dose Blister With Device 1 inh INHALATION BID warfarin 2 mg Tablet 4 mg PO DAILY enoxaparin [Lovenox] 120 mg/0.8 mL Syringe 120 mg SUBCUT Q12H Patient Comments: bridge Held losartan 25 mg Tablet 25 mg PO BID hydrochlorothiazide 12.5 mg Capsule 12.5 mg PO QAM potassium 99 mg Tablet 297 mg PO QPM Discharge Orders: Discharge Order (Routine); Ordered 03/05/24 Ordered By: Madhu King Admission Data Admit Date/Time: 03/02/24 14:37 Attending Provider: Madhu King Admit Provider: Madhu King Primary Care Provider: Ciera Evans Other Providers: Carol Del Rio; [facility]
[2024-03-05 11:03] VITALS: BP 119/75
== END 2024-03-05 11:59 | disposition home health service (06) | DRG 427 ==
LOC: ASU 10:35 → 3N 14:37
DX: J45.909 Unspecified asthma, uncomplicated; Z86.711 Personal history of pulmonary embolism; I10 Essential (primary) hypertension; Z68.42 Body mass index [BMI] 45.0-49.9, adult; E66.01 Morbid (severe) obesity due to excess calories; K21.9 Gastro-esophageal reflux disease without esophagitis; G43.909 Migraine, unspecified, not intractable, without status migrainosus; Z88.2 Allergy status to sulfonamides; Z79.01 Long term (current) use of anticoagulants; F32.A Depression, unspecified; Z88.1 Allergy status to other antibiotic agents; M48.062 Spinal stenosis, lumbar region with neurogenic claudication; E55.9 Vitamin D deficiency, unspecified; D68.61 Antiphospholipid syndrome; D62 Acute posthemorrhagic anemia